=== PATIENT | female | born 1965 | race Asian ===

== ENCOUNTER 2020-05-06 08:17 | Outpatient (REF) | payer OTHER, SELFPAY ==
[2020-05-06 09:48] LABS: COVID-19 Test Positive (Negative); IDNOW Serial# 55D5AD1C
== END 2020-05-06 08:18 | disposition home or self-care (01) ==
LOC: HO.EMPCOV 08:17
PROVIDERS: Visit Provider Internal Medicine
DX: Z20.828 Contact with and (suspected) exposure to other viral communicable diseases (principal)
CPT/HCPCS: 87635; C9803

== ENCOUNTER 2020-05-24 15:40 | Outpatient (REF) | payer OTHER, SELFPAY ==
--- NOTE | 2020-05-24 15:46 | MM_ITS ---
EXAMINATION: MM SCREENING DIGITAL BREAST TOMOSYNTHESIS, BILATERAL CLINICAL INFORMATION: Screening. Asymptomatic. The lifetime risk of breast cancer based on the Tyrer-Cuzick Model is 18%. COMPARISON: Mammography: December 30, 2018 and studies dating back to May 27, 2011 TECHNIQUE: Digital breast tomosynthesis is performed in both the craniocaudal and mediolateral oblique views along with computer-aided detection (CAD). Synthesized 2D images are generated from the tomosynthesis. FINDINGS: There are scattered areas of fibroglandular density (ACR BI-RADS breast composition Category b). There are no new significant masses, abnormal calcifications, or other abnormalities. There is stable architectural distortion about the superior aspect of the left breast. MM/MM tomosynthesis screening BI IMPRESSION: There are no significant changes from prior study. ASSESSMENT: BI-RADS 2: Benign RECOMMENDATION: Routine annual mammography screening. This patient's information was entered into a reminder system with a target due date for their next mammogram.
== END 2020-05-24 15:41 | disposition home or self-care (01) ==
LOC: HO.MAMMO 15:40
PROVIDERS: PCP Internal Medicine; Visit Provider Internal Medicine
DX: Z12.31 Encounter for screening mammogram for malignant neoplasm of breast (principal)
CPT/HCPCS: 77063; 77067

== ENCOUNTER 2021-03-05 07:56 | Outpatient (REF) | payer OTHER, SELFPAY ==
[2021-03-05 09:05] LABS: MANUAL DIFF FLAG NO
[2021-03-05 09:10] LABS: Basophils Percent Auto 0.5 % (0-2); Eosinophils Absolute Auto 0.2 X10*3/uL (0.0-0.4); Hematocrit 43.4 % (37-47); Hemoglobin 14.7 g/dl (12.0-16.0); Imm Gran Pct Auto 1.2 % (0.0-0.4); Lymphocytes Absolute Auto 2.8 X10*3/uL (1.2-4.9); Lymphocytes Percent Auto 34.8 % (20-40); Mean Corpuscular HGB Conc 33.9 g/dl (31.0-35.0); Mean Corpuscular Hemoglobin 32.2 pg (27.0-33.0); Mean Platelet Volume 9.3 fL (9.4-12.3); Monocytes Absolute Auto 0.6 X10*3/uL (0.1-1.2); Monocytes Percent Auto 7.8 % (2-11); Neutrophils Absolute Auto 4.3 X10*3/uL (2.0-8.3); Neutrophils Percent Auto 53.7 % (45-73); Platelet Count 257 X10*3/uL (160-400); Red Blood Count 4.57 X10*6/uL (4.20-5.50); Red Cell Distribution Width 12.8 % (11.0-16.0)
[2021-03-05 09:58] LABS: Erythrocyte Sedimentation Rate 12 MM/HR (0-20)
[2021-03-05 10:09] LABS: Appearance Urine CLEAR; Color Urine YELLOW; Glucose Urine UA NEG (NEG); Leukocyte Esterase Urine NEG (NEG); Nitrite Urine NEG (NEG); Specific Gravity - Urine 1.025 (1.005-1.025); Urine Blood NEG (NEG); Urine Ketones NEG (NEG); Urine Protein NEG (NEG-TRACE)
[2021-03-05 10:12] LABS: Alanine Aminotransferase 39 U/L (0-31); Albumin Level 4.7 g/dL (3.5-5.0); Alkaline Phosphatase 75 U/L (39-117); Anion Gap 13 (12-20); Aspartate Amino Transferase 31 U/L (5-31); Bilirubin Total 0.9 mg/dL (0.0-1.0); Blood Urea Nitrogen 15 mg/dL (9-16); Calcium 9.4 mg/dL (8.4-10.2); Carbon Dioxide 29 mmol/L (22-29); Chloride 105 mmol/L (96-108); Cholesterol 219 mg/dL; Estimated Glomerular Filt Rate > 60; Glucose Fasting 102 mg/dL (60-99); HDL Cholesterol 44 mg/dL; LDL Cholesterol Calculated 143 mg/dl; Potassium 4.6 mmol/L (3.3-5.1); Sodium 142 mmol/L (135-145); Total Protein 7.6 g/dL (6.5-8.0); Triglycerides 161 mg/dL
[2021-03-05 10:19] LABS: Vitamin D 25-OH Total 20.7 ng/mL (>30)
== END 2021-03-05 07:57 | disposition home or self-care (01) ==
LOC: HO.LAB 07:56
PROVIDERS: PCP Internal Medicine; Visit Provider Internal Medicine
DX: E78.00 Pure hypercholesterolemia, unspecified (principal); M25.50 Pain in unspecified joint; I10 Essential (primary) hypertension; E55.9 Vitamin D deficiency, unspecified
CPT/HCPCS: 36415; 80053; 80061; 81003; 82306; 84443; 85025; 85652; 86140

== ENCOUNTER 2022-01-05 10:28 | Outpatient (REF) | payer OTHER, SELFPAY ==
--- NOTE | 2022-01-05 10:34 | EMG_ITS ---
Right tibial and peroneal motor studies were performed. Right and left lateral femoral cutaneous sensory studies were performed. Right sural and superficial peroneal studies were performed. Tibial H-reflex was obtained. Needle examination was performed. IMPRESSION: 1. Bilateral, right more than left, lateral femoral cutaneous neuropathy. 2. The EMG is suggestive of right upper lumbar radiculopathy. MD MARIXA Griffin/AXEL / [id number]
== END 2022-01-05 10:29 | disposition home or self-care (01) ==
LOC: HO.NEURO 10:28
PROVIDERS: PCP Internal Medicine; Visit Provider Internal Medicine
DX: R20.2 Paresthesia of skin (principal)
CPT/HCPCS: 95886; 95910

== ENCOUNTER 2022-01-19 16:15 | Outpatient (REF) | payer OTHER, SELFPAY ==
--- NOTE | ~2022-01-19 | XR_ITS ---
EXAMINATION: XR LUMBAR SPINE XR HIP, BILATERAL XR KNEE, RIGHT CLINICAL INFORMATION: Pain right knee, lumbar spine and bilateral hips. COMPARISON: Right knee 03/02/2016. TECHNIQUE: Lumbar spine 4 views. AP pelvis and bilateral hips 5 views. Right knee 4 views. FINDINGS: LUMBAR SPINE: There is normal lumbar lordosis. The vertebral heights, alignment and disc heights are normal. No visible acute fracture, dislocation or subluxation seen. The SI joints are symmetric and normal. No lytic or sclerotic process seen. AP PELVIS AND BILATERAL HIPS: There is normal symmetry of bilateral SI joints and hip joints. No fracture or dislocation seen. AP and frog-leg views of both hips reveal no bony erosive changes, fracture or dislocation. No periarticular spurring. The soft tissues are normal. RIGHT KNEE: There is no visible acute fracture, dislocation or subluxation seen. No abnormal joint effusion. XR/XR knee RT 4V IMPRESSION: Unremarkable lumbar spine. Unremarkable AP pelvis and bilateral hips. Unremarkable right knee exam.
--- NOTE | ~2022-01-19 | XR_ITS ---
EXAMINATION: XR LUMBAR SPINE XR HIP, BILATERAL XR KNEE, RIGHT CLINICAL INFORMATION: Pain right knee, lumbar spine and bilateral hips. COMPARISON: Right knee 03/02/2016. TECHNIQUE: Lumbar spine 4 views. AP pelvis and bilateral hips 5 views. Right knee 4 views. FINDINGS: LUMBAR SPINE: There is normal lumbar lordosis. The vertebral heights, alignment and disc heights are normal. No visible acute fracture, dislocation or subluxation seen. The SI joints are symmetric and normal. No lytic or sclerotic process seen. AP PELVIS AND BILATERAL HIPS: There is normal symmetry of bilateral SI joints and hip joints. No fracture or dislocation seen. AP and frog-leg views of both hips reveal no bony erosive changes, fracture or dislocation. No periarticular spurring. The soft tissues are normal. RIGHT KNEE: There is no visible acute fracture, dislocation or subluxation seen. No abnormal joint effusion. XR/XR lumbar spine 2-3V IMPRESSION: Unremarkable lumbar spine. Unremarkable AP pelvis and bilateral hips. Unremarkable right knee exam.
--- NOTE | ~2022-01-19 | XR_ITS ---
EXAMINATION: XR LUMBAR SPINE XR HIP, BILATERAL XR KNEE, RIGHT CLINICAL INFORMATION: Pain right knee, lumbar spine and bilateral hips. COMPARISON: Right knee 03/02/2016. TECHNIQUE: Lumbar spine 4 views. AP pelvis and bilateral hips 5 views. Right knee 4 views. FINDINGS: LUMBAR SPINE: There is normal lumbar lordosis. The vertebral heights, alignment and disc heights are normal. No visible acute fracture, dislocation or subluxation seen. The SI joints are symmetric and normal. No lytic or sclerotic process seen. AP PELVIS AND BILATERAL HIPS: There is normal symmetry of bilateral SI joints and hip joints. No fracture or dislocation seen. AP and frog-leg views of both hips reveal no bony erosive changes, fracture or dislocation. No periarticular spurring. The soft tissues are normal. RIGHT KNEE: There is no visible acute fracture, dislocation or subluxation seen. No abnormal joint effusion. XR/XR hips JOSÉ MIGUEL min 3V IMPRESSION: Unremarkable lumbar spine. Unremarkable AP pelvis and bilateral hips. Unremarkable right knee exam.
== END 2022-01-19 16:16 | disposition home or self-care (01) ==
LOC: HO.XRAY 16:15
PROVIDERS: PCP Internal Medicine; Visit Provider Internal Medicine
DX: R20.2 Paresthesia of skin (principal); M54.50 Low back pain, unspecified; M25.561 Pain in right knee; G57.10 Meralgia paresthetica, unspecified lower limb
CPT/HCPCS: 72100; 73522; 73564

== ENCOUNTER 2022-03-09 07:38 | Outpatient (REF) | payer OTHER, SELFPAY ==
[2022-03-09 10:53] LABS: MANUAL DIFF FLAG NO
[2022-03-09 11:07] LABS: Basophils Absolute Auto 0.1 X10*3/uL (0.0-0.2); Basophils Percent Auto 0.7 % (0-2); Eosinophils Absolute Auto 0.1 X10*3/uL (0.0-0.4); Eosinophils Percent Auto 1.6 % (0-4); Hemoglobin 14.6 g/dl (12.0-16.0); Imm Gran Abs Auto 0.09 X10*3/uL (0.00-0.03); Lymphocytes Absolute Auto 2.9 X10*3/uL (1.2-4.9); Lymphocytes Percent Auto 33.1 % (20-40); Mean Corpuscular HGB Conc 33.2 g/dl (31.0-35.0); Mean Corpuscular Hemoglobin 31.1 pg (27.0-33.0); Mean Corpuscular Volume 93.6 fL (80.0-98.0); Mean Platelet Volume 9.4 fL (9.4-12.3); Monocytes Absolute Auto 0.6 X10*3/uL (0.1-1.2); Monocytes Percent Auto 6.8 % (2-11); Neutrophils Percent Auto 56.8 % (45-73); Platelet Count 281 X10*3/uL (160-400); Red Cell Distribution Width 12.5 % (11.0-16.0); White Blood Count 8.8 X10*3/uL (4.8-10.8)
[2022-03-09 11:15] LABS: Appearance Urine Turbid; Color Urine Yellow; Glucose Urine UA Negative (Negative); Leukocyte Esterase Urine Small (1+) (Negative); Nitrite Urine Negative (Negative); PH 5.5 (5.0-9.0); Specific Gravity - Urine 1.025 (1.005-1.025); UMIC TRIGGER UACC YES; Urine Blood Negative (Negative); Urine Ketones Negative (Negative); Urine Protein Negative (Neg-Trace)
[2022-03-09 11:20] LABS: Alanine Aminotransferase 28 U/L (0-31); Albumin Level 4.7 g/dL (3.5-5.0); Alkaline Phosphatase 89 U/L (39-117); Anion Gap 17 (12-20); Aspartate Amino Transferase 22 U/L (5-31); Bilirubin Total 0.7 mg/dL (0.0-1.0); Blood Urea Nitrogen 20 mg/dL (9-16); Calcium 9.7 mg/dL (8.4-10.2); Carbon Dioxide 26 mmol/L (22-29); Chloride 103 mmol/L (96-108); Cholesterol 241 mg/dL; Estimated Glomerular Filt Rate > 60; Glucose Fasting 96 mg/dL (60-99); HDL Cholesterol 41 mg/dL; LDL Cholesterol Calculated 166 mg/dl; Magnesium 2.2 mg/dL (1.6-2.6); Potassium 4.9 mmol/L (3.3-5.1); Sodium 141 mmol/L (135-145); Triglycerides 170 mg/dL
[2022-03-09 11:33] LABS: Bacteria Urine None Seen (None Seen); Hyaline Casts Urine 0-2 /LPF (0-2); RBC Urine 0-2 /HPF (0-2); UACC Culture Trigger YES; WBC Urine 0-5 /HPF (0-5)
[2022-03-09 11:43] LABS: TSH reflex Free T4 0.94 uIU/mL (0.32-4.0); Vitamin D 25-OH Total 23.9 ng/mL (>30)
[2022-03-09 11:55] LABS: Folate 14.3 ng/mL (> or = 4.0); Vitamin B12 324 pg/mL (200-900)
== END 2022-03-09 07:39 | disposition home or self-care (01) ==
LOC: HO.10HDL 07:38
PROVIDERS: Visit Provider Internal Medicine
DX: R20.2 Paresthesia of skin (principal); I10 Essential (primary) hypertension; E55.9 Vitamin D deficiency, unspecified; E78.00 Pure hypercholesterolemia, unspecified
CPT/HCPCS: 36415; 80053; 80061; 81001; 82306; 82607; 82746; 83735; 84443; 85025; 87086

== ENCOUNTER 2022-07-27 11:26 | Outpatient (REF) | payer OTHER, SELFPAY ==
--- NOTE | ~2022-07-27 | XR_ITS ---
EXAMINATION: KNEE X-RAY CLINICAL INFORMATION: Knee pain COMPARISON: Right knee x-ray January 2022 and left knee x-ray June 2019 TECHNIQUE: Standing AP view of both knees and lateral and sunrise view of the right knee FINDINGS: Right knee: Bone alignment is normal. No fracture or dislocation. Normal joint spaces. No significant joint effusion. Normal AP standing view of the left knee. XR/XR knee standing BI IMPRESSION: Unremarkable exam.
--- NOTE | ~2022-07-27 | XR_ITS ---
EXAMINATION: KNEE X-RAY CLINICAL INFORMATION: Knee pain COMPARISON: Right knee x-ray January 2022 and left knee x-ray June 2019 TECHNIQUE: Standing AP view of both knees and lateral and sunrise view of the right knee FINDINGS: Right knee: Bone alignment is normal. No fracture or dislocation. Normal joint spaces. No significant joint effusion. Normal AP standing view of the left knee. XR/XR knee RT 2V IMPRESSION: Unremarkable exam.
== END 2022-07-27 11:27 | disposition home or self-care (01) ==
LOC: HO.HOSX 11:26
PROVIDERS: Visit Provider Physician Assistant
DX: M25.561 Pain in right knee (principal); M25.562 Pain in left knee; M54.16 Radiculopathy, lumbar region; M54.50 Low back pain, unspecified
CPT/HCPCS: 73560; 73565

== ENCOUNTER 2023-02-16 14:58 | Outpatient (AMB) | payer OTHER, SELFPAY ==
--- NOTE | 2023-02-16 15:00 | A.OFFPC_ITS ---
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 Aircraft Required: No Accompanied by: Self / Same As Patient Allergies Penicillins Allergy (Mild, Verified 02/16/23 15:35) UNKNOWN penicillin V Allergy (Unknown, Verified 02/16/23 15:35) rash Medication List - Last Reconciled 02/16/23 by Grayson Lundberg MD diclofenac sodium 1% 4 grams topical QID lisinopril 10 mg PO DAILY 90 days metoprolol tartrate 50 mg PO BID 90 days Tobacco use date assessed: 02/16/23 Dental Screening Dental Screen Date: 02/16/23 Did you have a dental visit in the last 12 months?: Yes Did you have a dental problem in the last 6 months where you did not have access to dental care?: No Was dental information given to patient?: Patient has dentist HPI pe HPI Details Patient comes in today for her annual physical examination States that she has been experiencing recurrent/frequent pain and discomfort in her right knee for the past few months Notes that her knee symptoms tend to bother her more with prolonged walking/standing, when navigating stairs and with increased activity Was seen by orthopedics for the same problem earlier this year and was sent for knee x-rays, which came out negative Lumbar spine x-rays also came back normal She was trialed on Medrol dose yeinfer as well as some topical NSAIDs, which provided only temporary symptoms relief Also relates (+) recurrent heartburns lately, especially when she lies down in bed at night States that she would then take some OTC Pepcid, which would promptly relieve her symptoms Notes also some chest burning / discomfort at times and is concerned if her symptoms may have any cardiac etiology States that she feels okay otherwise She denies any headaches or dizziness Denies any increased SOB No nausea/vomiting, no abdominal pain No change in bowel habits noted Denies any acute urinary symptoms Needs both of her BP med Rx refilled for a year's supply Patient has also not had a screening colonoscopy done in the past Requested to have Cologuard testing ordered instead back in 2019 but it appears that she was never able to get this done Last had a mammogram done in 2019 and has not had one done since Has had a complete hysterectomy done in the past and does not need to see gynecology for routine pap smear and qualitative executive researcher exam any longer [facility] Medical History (Updated 02/16/23 @ 17:29 by Grayson Lundberg MD) Arthralgia Benign essential hypertension GERD without esophagitis Hypertriglyceridemia Overweight (BMI 25.0-29.9) Surgical History Status post total abdominal hysterectomy and bilateral salpingo-oophorectomy (SONJA-BSO) (~2012) Family History Father No problems noted. Mother No problems noted. 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 1. Little interest or pleasure in doing things: not at all 2. Feeling down, depressed, or hopeless: not at all 3. Trouble falling or staying asleep, or sleeping too much: not at all 4. Feeling tired or having little energy: not at all 5. Poor appetite or overeating: not at all 6. Feeling bad about yourself - or that you are a failure or have let yourself or your family down: not at all 7. Trouble concentrating on things, such as reading the newspaper or watching television: not at all 8. Moving or speaking so slowly that other people could have noticed. Or the opposite - being so fidgety or restless that you have been moving around a lot more than usual: not at all 9. Thoughts that you would be better off or of hurting yourself in some way: not at all Total score: 0 Depression Screening Interpretation: Negative [id number] - PHQ-9 Billing: Yes Source: Developed by Drs. Segundo Blackmon, Tati Comer, Isidoro Cabrera and colleagues, with an educational sharron from [employer]. Thrive Questionnaire Date Thrive assessed: 02/16/23 I am a: Patient What is your living situation today?: I have a steady place to live Within the past 12 months, did the food you bought not last and you didn't have the money to get more?: Never true Within the past 12 months, did you worry whether your food would run out before you got money to buy more?: Never true Do you have trouble paying for medicines?: No Do you have trouble getting transportation to medical appointments?: No Do you have trouble paying your heating and electricity bill?: No Do you have trouble taking care of your child, family member or friend?: No Do you have trouble with day-to-day activities such as bathing, preparing meals, shopping, managing finances, etc.?: No Are you currently unemployed and looking for a job?: No Are you interested in more education?: No Please select the resources that you would like help with: None Currently or been in a relationship where the following occur: no concerns reported AUDIT C Alcohol Use Questionnaire (AUDIT-C) 1. How often do you have a drink containing alcohol?: Never 3. How often do you have six or more drinks on one occasion?: Never Total Score: 0 Score Reviewed/Action Taken: Yes ARMIN-7 AMB Questionnaire ARMIN-7 Date ARMIN - 7 assessed: 02/16/23 Feeling nervous, anxious, or on edge: 0 = Not at all Not being able to stop or control worryin = Not at all Worrying too much about different things: 0 = Not at all Trouble relaxin = Not at all Being so restless that it is hard to sit still: 0 = Not at all Becoming easily annoyed or irritable: 0 = Not at all Feeling afraid as if something awful might happen: 0 = Not at all Total ARMIN-7 score (0-4 normal; 5-9 mild; 10-14 moderate; 15-21 severe): 0 Source: Developed by Drs. Segundo Blackmon, Tati Comer, Isidoro Cabrera and colleagues, with an educational sharron from [employer]. Review of Systems Const Denies chills, Denies fatigue, Denies fever(s), Denies headache(s) and Denies malaise Eyes Denies blurry vision, Denies change in vision, Denies irritation and Denies itchy eyes ENT Denies dysphagia, Denies dizziness, Denies otalgia, Denies headache(s), Denies nasal congestion, Denies neck pain, Denies odynophagia, Denies sinus pain and Denies sore throat Card Reports chest pain (at times; more of discomfort that sometimes occur with her heartburns), Denies rapid heart rate, Denies irregular heart rhythm, Denies palpitations and Denies dyspnea Resp Denies chest congestion, Denies cough, Denies dyspnea and Denies wheezing GI Denies abdominal pain, Denies bloating, Denies constipation, Denies dysphagia, Reports heartburn (on and off, mostly at night), Denies diarrhea, Denies nausea, Denies odynophagia and Denies vomiting Denies hematuria, Denies urinary frequency, Denies dysuria, Denies urinary incontinence and Denies urinary urgency Musc Denies back pain, Reports arthralgias (on and off in the right knee), Denies joint swelling, Denies muscle weakness and Denies neck pain Skin/Breast Denies breast pain, Denies breast mass, Denies change in pigmentation, Denies le sions, Denies rash and Denies unusual bruising Neuro Denies dizziness, Denies headache(s) and Denies paresthesias Psych Denies anxiety and Denies depression Endo Denies fatigue and Denies palpitations Myke/Lymph Denies easy bruising Aller/Immun Denies itchy eyes and Denies wheezing Physical exam (Primary Care) Vital Signs: Last Vital Signs Pulse 74 02/16/23 15:01 BP 132/70 02/16/23 15:01 Pulse Ox 97 02/16/23 15:01 Oxygen Delivery Method Room Air 02/16/23 15:01 Tobacco/Smoking Status: Tobacco use Status Tobacco use date assessed 02/16/23 02/16/23 15:07 Patient Tobacco Use Status Never used Tobacco 02/16/23 15:07 e-Cigarette/Vaping Use Never Used 02/16/23 15:07 PHQ-9: PHQ-9 Score PHQ-9: Total score 0 02/16/23 15:56 Depression Screening Interpretation: Negative Thrive Assessment: Date of Thrive Assessment Date Thrive assessed 02/16/23 02/16/23 15:07 Currently or been in a relationship where the following occur: no concerns reported Const General: no acute distress, alert and awake Orientation/consciousness: patient oriented x3 HENMT Head: Yes normocephalic and Yes atraumatic Ears: external ears normal, TM's normal bilaterally and EAC's normal General nose exam: No nasal discharge present Face and sinus: Yes normal facial exam and Yes sinuses nontender Teeth and gingiva: dentition normal Throat: Yes posterior oropharynx normal and Yes tonsils normal (no TP congestion) Eyes Eyelids: Yes eyelids normal Conjunctivae: conjunctivae normal Pupils: Equal, round and reactive pupils present EOM: EOMs intact bilaterally Neck Neck: Yes no lymphadenopathy and Yes supple Thyroid: Thyroid normal Resp Auscultation: clear to auscultation bilaterally, no rales and no wheezes Cardio Rate: regular rate Rhythm: regular rhythm Heart sounds: no murmurs GI Palpation (GI): Soft to palpation, nontender and No hepatosplenomegaly present Auscultation: normal bowel sounds General: Yes no CVA tenderness Back/Spine/Pelvis Back: no CVA tenderness Thoracic/Lumbar Spine: thoracic and lumbar spine normal to inspection Skin Lesions: no lesions Rashes: no rashes Neuro General: patient oriented x3, moves all extremities, no focal motor deficits and CN's II-XI intact bilaterally Cranial nerves: Yes Equal, round and reactive pupils present Cognition (Neuro): normal cognition Gait exam (Neuro): Normal gait present Extrem General: Yes no clubbing, cyanosis or edema Right lower extremity: knee Details: normal ROM; no tenderness (no tenderness noted on exam currently) and no swelling Assessment and Plan Assessment & Plan (1) Annual physical exam: Code(s): Z00.00 - Encounter for general adult medical examination without abnormal findings Plan: Check labs She is due for repeat annual mammogram (ordered) Has never had a screening colonoscopy done; opted to have Cologuard ordered back in 2020 but it appears that she was never able to get this completed Have advised that we can order Cologuard again OR if she feels ready, we can refer her for an actual screening colonoscopy - patient would like some time to consider her options and call us back once she makes her decision She does NOT need to get annual pap smear and qualitative executive researcher exam - is S/P SONJA-BSO years ago (2) Benign essential hypertension: Code(s): I10 - Essential (primary) hypertension Plan: Reinforced low sodium diet - goal is systolic BP of at least 120 to 130 mm or less Continue Lisinopril 10 mg QD and Metoprolol 50 mg BID - Rx refilled (3) Mixed hyperlipidemia: Code(s): E78.2 - Mixed hyperlipidemia Plan: Cautioned that her LDL cholesterol level was elevated at > 166 mg/dl when last checked a year ago in February 2022 Reinforced low cholesterol diet Will recheck her fasting lipids SHAKIRA for follow up (4) Chest discomfort: Code(s): R07.89 - Other chest pain Plan: Due to her recurrent chest symptoms and comorbidities, will refer her for cardiac stress testing for further evaluation (5) Paresthesia of both lower extremities: Code(s): R20.2 - Paresthesia of skin Plan: EMG and NCV done back on 02/09/2011 revealed findings of right lateral femoral cutaneous neuropathy/meralgia paresthetica X-rays of the lumbar spine and both hips done last year came out normal Repeat EMG and NCV done last year in December 2021 revealed the same - (+) bilateral, right more than left, lateral femoral cutaneous neuropathy EMG was suggestive of a right upper lumbar radiculopathy (6) Vitamin D deficiency: Code(s): E55.9 - Vitamin D deficiency, unspecified Plan: Continue OTC Vitamin D3 2000 units QD Will recheck her Vitamin D level for follow up (7) Right knee pain: Code(s): M25.561 - Pain in right knee Qualifiers: Chronicity: unspecified Qualified Code(s): M25.561 - Pain in right knee Plan: X-rays of the right knee done earlier this year came out normal She was previously seen by orthopedics and prescribed some Medrol dose yenifer and topical NSAIDs for short-term relief Due to her ongoing knee symptoms and recurrent knee instability, will send her for an MRI of the right knee for further evaluation (8) Overweight (BMI 25.0-29.9): Code(s): E66.3 - Overweight Plan: Reinforced diet/exercise as tolerated/lose weight (9) Breast cancer screening by mammogram: Code(s): Z12.31 - Encounter for screening mammogram for malignant neoplasm of breast Plan: Last done over 2 years ago in late 2019; will send for repeat annual mammogram Plan To return in 1 year for her next annual physical examination; may need to follow up in 6 months if labs or test results are abnormal Orders: Orders MR knee RT wo con Today M23.51 - Chronic instability of knee, right knee, M25.561 - Pain in right knee Comprehensive [place]. Panel Fast Today E78.00 - Pure hypercholesterolemia, unspecified, Z00.00 - Encounter for general adult medical examination without abnormal findings Lipid Panel Today E78.00 - Pure hypercholesterolemia, unspecified, Z00.00 - Encounter for general adult medical examination without abnormal findings TSH reflex Free T4 Today E78.00 - Pure hypercholesterolemia, unspecified, Z00.00 - Encounter for general adult medical examination without abnormal findings Complete Blood Count Auto Diff Today I10 - Essential (primary) hypertension, Z00.00 - Encounter for general adult medical examination without abnormal findings UA CC w/rflx Micro + Cult Today R30.0 - Dysuria, Z00.00 - Encounter for general adult medical examination without abnormal findings C Peptide Today M23.51 - Chronic instability of knee, right knee, M25.561 - Pain in right knee, Z00.00 - Encounter for general adult medical examination without abnormal findings Vitamin D 25-OH Total Today E55.9 - Vitamin D deficiency, unspecified, Z00.00 - Encounter for general adult medical examination without abnormal findings Erythrocyte Sedimentation Rate Today M23.51 - Chronic instability of knee, right knee, M25.561 - Pain in right knee, Z00.00 - Encounter for general adult medical examination without abnormal findings CA cardiopulmonary stress test Today E78.2 - Mixed hyperlipidemia, I10 - Essential (primary) hypertension, R07.89 - Other chest pain, R07.9 - Chest pain, unspecified MM tomosynthesis screening BI Today Z12.31 - Encounter for screening mammogram for malignant neoplasm of breast Medications: Refilled metoprolol tartrate 50 mg PO BID 90 days 180 tabs 3RF I10 - Essential (primary) hypertension lisinopril 10 mg PO DAILY 90 days 90 tabs 3RF I10 - Essential (primary) hypertension Coding Level of Care Code Est Pt Prev Care 40-64y([id number]) Diagnoses Annual physical exam Z00.00 Benign essential hypertension I10 Mixed hyperlipidemia E78.2 Chest discomfort R07.89 Paresthesia of both lower extremities R20.2 Vitamin D deficiency E55.9 Right knee pain M25.561 Chronicity: unspecified Overweight (BMI 25.0-29.9) E66.3 Breast cancer screening by mammogram Z12.31
[2023-02-16 15:01] VITALS: BP 132/70; PULSE 74; O2SAT 97
== END 2023-02-16 15:40 | disposition home or self-care (01) ==
PROVIDERS: PCP Internal Medicine; Visit Provider Internal Medicine
DX: Z00.00 Encounter for general adult medical examination without abnormal findings (principal); I10 Essential (primary) hypertension; E55.9 Vitamin D deficiency, unspecified; E78.2 Mixed hyperlipidemia; R07.89 Other chest pain; R20.2 Paresthesia of skin; M25.561 Pain in right knee; E66.3 Overweight
CPT/HCPCS: 99396

== ENCOUNTER 2023-02-23 08:04 | Outpatient (REF) | payer OTHER, SELFPAY ==
[2023-02-23 10:25] LABS: MANUAL DIFF FLAG NO
[2023-02-23 10:31] LABS: Basophils Absolute Auto 0.1 X10*3/uL (0.0-0.2); Basophils Percent Auto 0.5 % (0-2); Eosinophils Absolute Auto 0.2 X10*3/uL (0.0-0.4); Eosinophils Percent Auto 1.7 % (0-4); Hematocrit 42.4 % (37.0-47.0); Hemoglobin 14.4 g/dl (12.0-16.0); Imm Gran Pct Auto 0.9 % (0.0-0.4); Lymphocytes Absolute Auto 2.6 X10*3/uL (1.2-4.9); Lymphocytes Percent Auto 24.2 % (20-40); Mean Corpuscular Hemoglobin 31.6 pg (27.0-33.0); Mean Platelet Volume 9.4 fL (9.4-12.3); Monocytes Absolute Auto 0.8 X10*3/uL (0.1-1.2); Monocytes Percent Auto 7.2 % (2-11); Neutrophils Absolute Auto 7.1 x10*3/uL (2.0-8.3); Neutrophils Percent Auto 65.5 % (45-73); Platelet Count 256 X10*3/uL (160-400); Red Blood Count 4.56 X10*6/uL (4.20-5.50); Red Cell Distribution Width 12.6 % (11.0-16.0); White Blood Count 10.9 X10*3/uL (4.8-10.8)
[2023-02-23 10:42] LABS: Appearance Urine Turbid; Color Urine Yellow; Glucose Urine UA Negative (Negative); Leukocyte Esterase Urine Negative (Negative); Nitrite Urine Negative (Negative); PH 5.5 (5.0-9.0); Urine Blood Negative (Negative); Urine Ketones Negative (Negative); Urine Protein Negative (Neg-Trace)
[2023-02-23 10:54] LABS: Alanine Aminotransferase 30 U/L (0-31); Albumin Level 4.4 g/dL (3.5-5.0); Alkaline Phosphatase 78 U/L (39-117); Anion Gap 12 (12-20); Aspartate Amino Transferase 22 U/L (5-31); Bilirubin Total 0.5 mg/dL (0.0-1.0); Blood Urea Nitrogen 13 mg/dL (9-16); Calcium 9.4 mg/dL (8.4-10.2); Carbon Dioxide 27 mmol/L (22-29); Chloride 107 mmol/L (96-108); Cholesterol 221 mg/dL (<200); Estimated Glomerular Filt Rate > 60; Glucose Fasting 99 mg/dL (60-99); HDL Cholesterol 43 mg/dL (>40); LDL Cholesterol Calculated 138 mg/dL (<100); Sodium 142 mmol/L (135-145); Total Protein 7.7 g/dL (6.5-8.0); Triglycerides 200 mg/dL (<150)
[2023-02-23 11:09] LABS: TSH reflex Free T4 1.01 uIU/mL (0.32-4.0); Vitamin D 25-OH Total 34.6 ng/mL (>30)
[2023-02-23 11:20] LABS: Erythrocyte Sedimentation Rate 37 MM/HR (0-20)
== END 2023-02-23 08:05 | disposition home or self-care (01) ==
LOC: HO.10HDL 08:04
PROVIDERS: Visit Provider Internal Medicine
DX: Z00.00 Encounter for general adult medical examination without abnormal findings (principal); R30.0 Dysuria; M23.51 Chronic instability of knee, right knee; M25.561 Pain in right knee; E55.9 Vitamin D deficiency, unspecified; E78.00 Pure hypercholesterolemia, unspecified; I10 Essential (primary) hypertension
CPT/HCPCS: 36415; 80053; 80061; 81003; 82306; 84443; 84681; 85025; 85652

== ENCOUNTER → 2023-02-27 08:09 | Outpatient (REF) | payer OTHER, SELFPAY ==
--- NOTE | 2023-02-27 08:15 | CA_ITS ---
Acquisition Time: 2023-02-27 08:23:03 Total Exercise Time: 00:07:38 Test Indications: CHEST PAIN Medications: LISINOPRIL METOPROLOL Protocol: RADHA Max HR: 144 BPM 88% of Pred: 163 BPM Max BP: 230/110 mmHG Max Work Load: 9.5 METS Exercise stress test exercise 7 min 38 sec of Radha protocol achieving 88% MPHR, without anignal symptoms, without arrhtyhmias, with resting HTN 160/70, 154/92, 148/88, and max BP post exercise 230/110, T wave inversion leads 3, aVF, V3-V6 7 min 4 recovery. Blood pressure returned to baseline with rest. Test reviewed with Dr. William. Message sent to PCP for HTN. Referred By: Grayson Lundberg Overread By: LUCINA WILLIAM
== END ==
LOC: HO.CARD 08:09
PROVIDERS: PCP Internal Medicine; Visit Provider Internal Medicine
DX: R07.9 Chest pain, unspecified (principal)
CPT/HCPCS: 93017

== ENCOUNTER → 2023-02-27 08:15 | Outpatient (BNV) | payer OTHER, SELFPAY | PROVIDERS: PCP Internal Medicine; Visit Provider Internal Medicine | DX: R07.9 Chest pain, unspecified (principal) | CPT/HCPCS: 93016; 93018 ==

== ENCOUNTER 2023-03-06 14:36 | Outpatient (AMB) | payer OTHER, SELFPAY ==
[2023-03-06 15:43] VITALS: BP 142/82; PULSE 76; TEMP 36.5; O2SAT 98
--- NOTE | 2023-03-06 15:43 | AM.OFFWIN_ITS ---
Intake Vital Signs 03/06/23 15:43 Height 5 ft 2 in BMI Reason not done Patient refused/unable BP 142/82 H Blood Pressure Location Rt brachial Position Sitting Pulse 76 Pulse Source Pulse Oximeter Temp 97.7 F Temp Source Temporal Artery Scan Pulse Oximetry (%) 98 Intake Visit Reasons: EP rash neck Intake Note: pt is here for c/o rash on neck since sunday Patient Tobacco Use Status: Never used Tobacco Allergies Penicillins Allergy (Mild, Verified 03/06/23 16:06) UNKNOWN penicillin V Allergy (Unknown, Verified 03/06/23 16:06) rash Medication List - Last Reconciled 03/06/23 by José Luis Manzanares MD diclofenac sodium 1% 4 grams topical QID lisinopril 10 mg PO DAILY 90 days metoprolol tartrate 50 mg PO BID 90 days Do you need a note to return to daycare/school/sports/work: Yes HPI EP rash neck HPI Details 57-year-old female presents to the [facility] for a sick visit. Patient has a rash around the neck and front of the chest. She had been wearing a necklace and dancing in the night [facility] Medical History (Updated 03/06/23 @ 16:07 by José Luis Manzanares MD) Overweight (BMI 25.0-29.9) GERD without esophagitis Hypertriglyceridemia Arthralgia Benign essential hypertension Surgical History Status post total abdominal hysterectomy and bilateral salpingo-oophorectomy (SONJA-BSO) (~2012) Family History Father No problems noted. Mother No problems noted. 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 No vesicles or pustules. Assessment & Plan Assessment & Plan (1) Irritant dermatitis: Code(s): L24.9 - Irritant contact dermatitis, unspecified cause Plan: Triamcinolone cream prescribed. If symptoms not better to follow-up here. Coding Level of Care Code Est Pt Level 3 (00506) Diagnoses Irritant dermatitis L24.9
== END 2023-03-06 16:19 | disposition home or self-care (01) ==
PROVIDERS: PCP Internal Medicine; Visit Provider Internal Medicine
DX: L24.9 Irritant contact dermatitis, unspecified cause (principal)
CPT/HCPCS: 99213

== ENCOUNTER 2023-03-07 15:56 | Outpatient (REF) | payer OTHER, SELFPAY ==
--- NOTE | ~2023-03-07 | MR_ITS ---
EXAMINATION: MR KNEE WITHOUT CONTRAST, RIGHT CLINICAL INFORMATION: Right knee pain following an injury. COMPARISON: Right knee radiographs dated 07/27/2022. TECHNIQUE: MRI of the knee without contrast was performed using routine sequences on a high-field scanner. FINDINGS: MENISCI: Medial Meniscus: Complete radial tear of the posterior root measuring up to 1.3 cm in ML dimension with medial extrusion of the meniscal body and mild adjacent soft tissue edema. Lateral Meniscus: Heterogeneity of the anterior and posterior roots, consistent with irregular fraying. LIGAMENTS: Cruciate: Intact. Collateral: Intact. EXTENSOR MECHANISM: Intact. ARTICULAR CARTILAGE/BONE: Patellofemoral Compartment: Inferior medial trochlea articular cartilage signal heterogeneity and surface irregularity. Inferior lateral trochlea signal heterogeneity and partial-thickness loss with minimal subchondral cystic change. Tiny marginal osteophytes. Medial Compartment: Articular cartilage thinning and signal heterogeneity with marginal osteophytes. Posterior non-weightbearing medial femoral condyle full-thickness fissuring with underlying subchondral cystic change. At the medialmost aspect of the medial tibial plateau, there is minimal cortical flattening measuring up to 0.6 cm in ML dimension with minimal adjacent marrow edema, which could represent a subacute/chronic subchondral fracture. Lateral Compartment: Mild articular cartilage signal heterogeneity with tiny marginal osteophytes. JOINT FLUID AND BURSAE: Small joint effusion and small Spaulding's cyst with synovitis. MR/MR knee RT wo con IMPRESSION: 1. Complete radial tear of the medial meniscus posterior root measuring 1.3 cm in ML dimension with medial extrusion of the meniscal body. 2. Irregular fraying of the lateral meniscus near the anterior and posterior roots. 3. Mild tricompartmental osteoarthritis. Small joint effusion and small Spaulding's cyst with synovitis.
== END 2023-03-07 15:57 | disposition home or self-care (01) ==
LOC: HO.MRI 15:56
PROVIDERS: PCP Internal Medicine; Visit Provider Internal Medicine
DX: M25.561 Pain in right knee (principal); M23.51 Chronic instability of knee, right knee
CPT/HCPCS: 73721

== ENCOUNTER → 2023-03-21 15:30 | Outpatient (BNV) | payer OTHER, SELFPAY | PROVIDERS: PCP Internal Medicine; Visit Provider Radiology Diagnostic Radiology | DX: Z12.31 Encounter for screening mammogram for malignant neoplasm of breast (principal) | CPT/HCPCS: 77063; 77067 ==

== ENCOUNTER 2023-03-21 15:36 | Outpatient (REF) | payer OTHER, SELFPAY ==
--- NOTE | ~2023-03-21 | MM_ITS ---
EXAMINATION: MM SCREENING DIGITAL BREAST TOMOSYNTHESIS, BILATERAL CLINICAL INFORMATION: Screening. Asymptomatic. COMPARISON: Mammography: This study is compared with prior exams dating back to 2018. TECHNIQUE: Digital breast tomosynthesis is performed in both the craniocaudal and mediolateral oblique views along with computer-aided detection (CAD). Synthesized 2D images are generated from the tomosynthesis. FINDINGS: There are scattered areas of fibroglandular density (ACR BI-RADS breast composition Category b). There are no significant masses, abnormal calcifications, or other abnormalities. There is a coarsely calcified benign mass in the upper inner quadrant of the right breast employment program representative of an involuted fibroadenoma. There is a tissue marker in the superior aspect of the left breast from prior benign percutaneous biopsy. MM/MM tomosynthesis screening BI IMPRESSION: No mammographic evidence of malignancy. ASSESSMENT: BI-RADS BI-RADS 2 - Benign Findings RECOMMENDATION: Routine annual mammography screening. 1 year F/U This examination should not preclude the clinical evaluation of a suspicious palpable abnormality. This patient's information was entered into a reminder system with a target due date for their next mammogram.
== END 2023-03-21 15:37 | disposition home or self-care (01) ==
LOC: HO.MAMMO 15:36
PROVIDERS: PCP Internal Medicine; Visit Provider Internal Medicine
DX: Z12.31 Encounter for screening mammogram for malignant neoplasm of breast (principal)
CPT/HCPCS: 77063; 77067

== ENCOUNTER 2023-04-19 15:03 | Outpatient (AMB) | payer OTHER, SELFPAY ==
--- NOTE | 2023-04-19 15:10 | A.OFFVIS_ITS ---
Intake Intake Visit Reasons: Newprob-Right knee pain Intake Note: Leona is a 57 year old female who presnets today for a new problem visit with complaints of right knee pain. PAtient reports that she has had ongoing knee pain for about 8 months now. While doing [employer] she slipped and fell on the right knee. She has had pain ad swelling of the right knee since this. She reports a second fall as she missed a step and buckled the knee. She had an MRI done. Allergies Penicillins Allergy (Mild, Verified 04/19/23 15:13) UNKNOWN penicillin V Allergy (Unknown, Verified 04/19/23 15:13) rash HPI Newprob-Right knee pain HPI Details Leona is a 57 year old woman, who works here at [employer], presenting for an MRI review of her right knee pain. She complains of pain in her right knee for some time, saying she first injured her knee during a [employer] class ~1 year ago. She reports falling onto her knee a few months later when in [place]. She complains of pain with daily activity, worse with prolonged walking, twisting, squatting, or using stairs. She says she is almost unable to weight bear when going up stairs. She also complains of swelling in her knee [facility] Medical History (Updated 04/19/23 @ 15:18 by Dequan Palmer) Overweight (BMI 25.0-29.9) GERD without esophagitis Hypertriglyceridemia Arthralgia Benign essential hypertension Surgical History Status post total abdominal hysterectomy and bilateral salpingo-oophorectomy (SONJA-BSO) (~2012) Family History Father No problems noted. Mother No problems noted. 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 Cognitive needs: No Hearing needs: No Vision needs: No Review of Systems Const All systems reviewed & are unremarkable except as noted in HPI and below Physical Exam Const General: no acute distress, alert and awake Orientation/consciousness: patient oriented x3 HEENT Head: Yes normocephalic and Yes atraumatic Eyes EOM: EOMs intact bilaterally Resp Effort & Inspection: normal respiratory effort and able to speak in complete sentences Cardio Jugular venous distension: no JVD Skin General skin exam: turgor normal Rashes: no rashes Neuro General: patient oriented x3 Extrem Other: Right Knee: vague medial compartment TTP with no effusion mildly + Steinmen's Psych Appearance: grossly normal Affect: normal affect Attitude: cooperative Results Reviewed Results Reviewed: I personally reviewed relevant MR images 1. Complete radial tear of the medial meniscus posterior root measuring 1.3 cm in ML dimension with medial extrusion of the meniscal body. 2. Irregular fraying of the lateral meniscus near the anterior and posterior roots. 3. Mild tricompartmental osteoarthritis. Small joint effusion and small Spaulding's cyst with synovitis. Assessment & Plan Assessment & Plan (1) Tear of medial meniscus of right knee: Code(s): S83.241A - Other tear of medial meniscus, current injury, right knee, initial encounter Plan: This is a 57 year old woman with a complex right knee medial meniscal root tear. SHe has minimal OA and is active. SHe is not able to return to activity and has not only mechanical symptoms but pain with twisting, squatting, using stairs and cycling. She feels limited in her ADLs by pain and finds this frustrating. She is unable to exercise without pain or her knee catching. I discussed her diagnosis and treatment options. I recommend a right knee with possible medial meniscus root repair vs partial mensicectomy. I discussed the risks, benefits, and alternatives including, but not limited to, the risk of pain, infection, stiffness, need for further surgery as well as potential medical complications such as blood clots, pulmonary embolism and cardiac complications. I discussed the recovery timeline and process as well as the importance of PT. Leona is a good candidate for this surgery, and she wishes to proceed with this decision. She will speak with Christa to schedule this procedure. Plan Scribed for Oliver Jackson MD by Dequan Palmer, biomedical equipment support specialist, on 04/19/23 at 3:20 PM, EST. Coding Level of Care Code Est Pt Level 4 (03671) Diagnoses Tear of medial meniscus of right knee S86.271A
== END 2023-04-19 15:34 | disposition home or self-care (01) ==
PROVIDERS: PCP Internal Medicine; Visit Provider Orthopaedic Surgery
DX: S83.231A Complex tear of medial meniscus, current injury, right knee, initial encounter (principal)
CPT/HCPCS: 99214

== ENCOUNTER → 2023-04-19 15:03 | Outpatient (BNVA) | payer OTHER, SELFPAY | PROVIDERS: PCP Internal Medicine; Visit Provider Orthopaedic Surgery ==

== ENCOUNTER 2023-05-16 06:49 | Day surgery (SDC) | payer OTHER, SELFPAY ==
[2023-05-09 11:43] VITALS: BP 148/87; PULSE 53; RESP 18; O2SAT 97; BMI 31.6
--- NOTE | 2023-05-09 12:38 | HO.ANESPROP2 ---
Documented by User: Constanza Roger NP 05/15/23 08:39 HPI - Anesthesia Eval Consult details Narrative: 57yo F for Right Knee Arthroscopy medial meniscus root repair Pending BP optimization per PCP. OK to proceed with f/u BP's WNL Stress test with htn and T wave inversions. No CP or SOB. No CP with stress test per patient No recent illness Asthma. No inhalers. Breathing exercises with wheezing PMFSH Active Problems Active Problems: All Active Problems (Updated 05/09/23 @ 12:20 by Trista Morales RN) Tear of medial meniscus of right knee (Acute) Irritant dermatitis (Acute) Breast cancer screening by mammogram (Acute) Chest discomfort (Acute) Chest pain (Acute) Recurrent right knee instability (Acute) Lower back pain (Acute) Lumbar radiculopathy (Acute) Lateral femoral cutaneous neuropathy (Acute) Vitamin D deficiency (Acute) Mixed hyperlipidemia (Acute) Right knee pain (Acute) Paresthesia of both lower extremities (Acute) Annual physical exam (Acute) Overweight (BMI 25.0-29.9) (Acute) GERD without esophagitis (Acute) Hypertriglyceridemia (Acute) Arthralgia (Acute) Benign essential hypertension (Acute) Past Medical History Medical History Neuropathy Habitual snoring Arthritis Asthma Overweight (BMI 25.0-29.9) GERD without esophagitis Hypertriglyceridemia Arthralgia Benign essential hypertension Family History Family History Father No problems noted. Mother No problems noted. Family history of problems with anesthesia: No Surgical History Surgical History Hx of breast biopsy Status post total abdominal hysterectomy and bilateral salpingo-oophorectomy (SONJA-BSO) (~2012) History of Problems with Anesthesia: Yes (PONV. Scop doesn't relieve. Will try aponvie.) Social History Social History Housing: House Are you a primary chiropractic care to a significant other at home: Yes Do you presently have visiting nurse or other home services: No Alcohol intake: never Patient Tobacco Use Status: Never used Tobacco e-Cigarette/Vaping Use: Never Used Second Hand Smoke Exposure: Yes Use of substances other than those prescribed or required for medical reasons: No Have you been hit, kicked, punched, or otherwise hurt by someone within the past year? 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 Cognitive needs: No Hearing needs: No Vision needs: No Meds Allergies Allergy/AdvReac Type Severity Reaction Status Date / Time Penicillins Allergy Mild UNKNOWN Verified 05/16/23 07:30 penicillin V Allergy Unknown rash Verified 05/16/23 07:30 acetaminophen [From Percocet] Allergy Vomiting Verified 05/16/23 07:30 oxycodone [From Percocet] Allergy Vomiting Verified 05/16/23 07:30 Home Medications Medication Instructions Recorded Confirmed Last Taken Type lisinopril 20 mg tablet 20 mg PO BEDTIME 05/09/23 05/09/23 Unknown History Exam Height,Weight and Vital Signs: Height 5 ft 2 in Weight 78.471 kg Last Vital Signs Pulse 53 05/09/23 11:43 Resp 18 05/09/23 11:43 BP 148/87 H 05/09/23 11:43 Pulse Ox 97 05/09/23 11:43 O2 Del Method Room Air 05/09/23 11:43 Pertinent Lab Results Pertinent Lab Results: Laboratory Tests 02/23/23 08:10 WBC 10.9 H Hgb 14.4 Hct 42.4 Plt Count 256 Sodium 142 Potassium 4.0 Chloride 107 Carbon Dioxide 27 BUN 13 Creatinine 0.76 Narrative Narrative: Exercise Stress 02/2023 Protocol: CHENTE Max HR: 144 BPM 88% of Pred: 163 BPM Max BP: 230/110 mmHG Max Work Load: 9.5 METS Exercise stress test exercise 7 min 38 sec of Chente protocol achieving 88% MPHR, without anignal symptoms, without arrhtyhmias, with resting HTN 160/70, 154/92, 148/88, and max BP post exercise 230/110, T wave inversion leads 3, aVF, V3-V6 7 min 4 recovery. Blood pressure returned to baseline with rest. Test reviewed with Dr. Cruz. Message sent to PCP for HTN. Airway Mallampati Class: III TM Dist: >3cm Neck ROM: Full Partial: Upper Heart: RRR Lungs: CTAB Assessment and Plan Assessment Anesthesia Assessment: Anesthesia Plan Discussed and PAT Visit Final Anesthetic Review Family History of Problems with Anesthesia: No History of Problems with Anesthesia: Yes (PONV. Scop doesn't relieve. Will try aponvie.) Documented by User: Rajesh Davidson MD 05/16/23 08:06 [facility] Past Medical History Medical History Neuropathy Habitual snoring Arthritis Asthma Overweight (BMI 25.0-29.9) GERD without esophagitis Hypertriglyceridemia Arthralgia Benign essential hypertension Family History Family History Father No problems noted. Mother No problems noted. Surgical History Surgical History Hx of breast biopsy Status post total abdominal hysterectomy and bilateral salpingo-oophorectomy (SONJA-BSO) (~2012) Social History Social History Housing: House Are you a primary chiropractic care to a significant other at home: Yes Do you presently have visiting nurse or other home services: No Alcohol intake: never Patient Tobacco Use Status: Never used Tobacco e-Cigarette/Vaping Use: Never Used Second Hand Smoke Exposure: Yes Use of substances other than those prescribed or required for medical reasons: No Have you been hit, kicked, punched, or otherwise hurt by someone within the past year? 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 Cognitive needs: No Hearing needs: No Vision needs: No Meds Allergies Allergy/AdvReac Type Severity Reaction Status Date / Time Penicillins Allergy Mild UNKNOWN Verified 05/16/23 07:30 penicillin V Allergy Unknown rash Verified 05/16/23 07:30 acetaminophen [From Percocet] Allergy Vomiting Verified 05/16/23 07:30 oxycodone [From Percocet] Allergy Vomiting Verified 05/16/23 07:30 Home Medications Medication Instructions Recorded Confirmed Last Taken Type lisinopril 20 mg tablet 20 mg PO BEDTIME 05/09/23 05/09/23 Unknown History Assessment and Plan Final Anesthetic Review ASA Class: III Final Preanesthetic Review: No Changes in Pt Med Stat, Meds/Allgs Chart Reviewed, Consent Obtained/Reviewed and Anes Risks/Benef Reviewed Patient Risk: Intermediate Procedure Risk: Intermediate Anesthetic Plan Anesthetic Plan: GA and Regional Block Disposition: Standard PACU
[2023-05-16] VITALS (12 sets, daily range): BP systolic 115–148; BP diastolic 68–96; PULSE 61–69; RESP 16–18; TEMP 36.2–37.1; O2SAT 93–100; BMI 31.9
[2023-05-16] MEDS: Lactated Ringers 1,000 ML 100 ML IVCONT (07:40)
[2023-05-16] MEDS: Aprepitant 32 MG/4.4 ML VIAL IVPUSH (07:44)
--- NOTE | 2023-05-16 10:41 | P.BOP_ITS ---
Brief Operative Note Date of Service: 05/16/23 Pre-op diagnosis: right knee MM tear Post-op diagnosis: same Procedure: Right medial meniscus root repair Implants: [employer] footprint anchor x1 Surgeon: Oliver Jackson MD Anesthesia: GETA Was an Community Services Officer used for this Procedure?: Yes Community Services Officer: Tmei Reece Estimated blood loss (mL): 10 Tourniquet time (min): 60 IV fluids (mL): 1,000 Pathology: none sent Condition: stable Disposition: PACU
[2023-05-16] MEDS: fentaNYL citrate/PF 100 MCG/2 ML VIAL 25 MCG IVPUSH ×2 (11:29→11:49)
[2023-05-16] MEDS: Acetaminophen 325 MG TABLET 650 MG PO (11:56)
[2023-05-16] MEDS: ondansetron HCL 4 MG/2 ML VIAL IVPUSH (12:14)
--- NOTE | 2023-05-18 15:31 | P.OP_ITS ---
Operative Note Operative Note Date of Service: 05/16/23 Narrative: Date of Service: 05/16/23 Pre-op diagnosis: right knee MM tear Post-op diagnosis: same Procedure: Right medial meniscus root repair Implants: [employer] footprint anchor x1 Surgeon: Oliver Jackson MD Anesthesia: GETA Was an Printed Circuit Board Layout Designer used for this Procedure?: Yes Printed Circuit Board Layout Designer: Temi Reece Estimated blood loss (mL): 10 Tourniquet time (min): 60 IV fluids (mL): 1,000 Pathology: none sent Condition: stable Disposition: PACU Procedure in detail: Patient was brought to the operating room placed supine on the arthroscopic table and prepped and draped in standard sterile fashion. A time-out was called to identify proper site proper procedure proper surgeon and IV antibiotics per weight were administered. I began by exsanguinating the limb and insufflating tourniquet to 300 mm Hg. Then made a standard anterolateral stab incision. knee was insufflated with water and 30 degree arthroscope was placed. There was grade 1 fibrillations of the patella but overall suprapatellar pouch was plane and the gutters were clean. I descended into the medial compartment where I made my medial portal just medial to the patellar tendon and under direct visualization. There were grade 2 changes of the medial femoral condyle. There was a complete root teat of the medial meniscus. I debrided some scarring from the posterior capsule and the PCL and the root was mobile. I used a currette to debride the cartilage below wth root tear. I then used a root repair guide to drill into the posterior medial root . Just prior to this I placed 2 Sutures through the medial root with a suture passer. I then passed a lasso through the drill hole and brought the two sutures through the tibia to the anterolateral surface just distal and lateral to the tibial tubercle. I then tightened the root repair and placed on Footprint anchor in the anterolateral tibia to secure the sutures. Once I was satisfied with this the ACL was examined and found to be intact and the lateral compartment also was without the need for intervention. I then removed all instrumentation and closed the portals with skin glue. The tourniquet was deflated. 25 mL of 2% Marcaine with epinephrine was injected into the joint and the surrounding soft tissues. Patient was then placed in sterile dressing extubated brought recovery room stable condition. There were no known complications. Root repair [facility] rehab protocol
== END 2023-05-16 13:55 | disposition home or self-care (01) ==
PROVIDERS: PCP Internal Medicine; Visit Provider Orthopaedic Surgery
PROC: (CPT 29870; principal; 2023-05-16 08:40)
DX: S83.241A Other tear of medial meniscus, current injury, right knee, initial encounter (principal); W01.0XXA Fall on same level from slipping, tripping and stumbling without subsequent striking against object, initial encounter; I10 Essential (primary) hypertension; K21.9 Gastro-esophageal reflux disease without esophagitis; E78.1 Pure hyperglyceridemia; Y93.A3 Activity, aerobic and step exercise; Y92.9 Unspecified place or not applicable; Y99.9 Unspecified external cause status
CPT/HCPCS: 29882; C1713; C9145; J0171; J0360; J0690; J1100; J1170; J2405; J2704; J2795; J3010

== ENCOUNTER → 2023-05-16 06:49 | Outpatient (BNV) | payer OTHER, SELFPAY | PROVIDERS: PCP Internal Medicine; Visit Provider Orthopaedic Surgery | DX: S83.231A Complex tear of medial meniscus, current injury, right knee, initial encounter (principal) | CPT/HCPCS: 29882 ==

== ENCOUNTER 2023-05-22 09:50 | Outpatient (AMB) | payer OTHER, SELFPAY ==
--- NOTE | 2023-05-22 09:52 | MHC.OFFVIS ---
Intake Intake Visit Reasons: PO-Rt Knee (Root Repair) 05/16 NE Intake Note: Leona is a 57 year old female who presents today for a post op appointment s/p right knee 05/16/23 NE. Patient reports still having pain but she is doing well. Allergies Penicillins Allergy (Mild, Verified 05/22/23 09:58) UNKNOWN penicillin V Allergy (Unknown, Verified 05/22/23 09:58) rash acetaminophen [From Percocet] Allergy (Verified 05/22/23 09:58) Vomiting oxycodone [From Percocet] Allergy (Verified 05/22/23 09:58) Vomiting HPI PO-Rt Knee (Root Repair) 05/16 NE HPI Details 57-year-old female who presents in the office today 6 days status post right medial meniscus root repair, which was performed on 05/16/[address] Jackson. While in the office today the patient reports she is still having pain, but overall is doing well. [facility] Medical History Neuropathy Habitual snoring Arthritis Asthma Overweight (BMI 25.0-29.9) GERD without esophagitis Hypertriglyceridemia Arthralgia Benign essential hypertension Surgical History (Updated 05/22/23 @ 10:05 by Vida Akbar) Hx of breast biopsy Status post total abdominal hysterectomy and bilateral salpingo-oophorectomy (SONJA-BSO) (~2012) Family History Father No problems noted. Mother No problems noted. 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 Steri-stripes are intact. No surrounding erythema or drainage. No signs of infection. Localized edema located just distally to the tibia incision site. NVI. Assessment & Plan Assessment & Plan (1) History of medial meniscus repair of right knee: Comment: Medial meniscus root repair 05/16/2023 NE Code(s): Z98.890 - Other specified postprocedural states Plan Ms. Richard is a 57-year-old female who presents in the office today 6 days status post right medial meniscus root repair, which was performed on 05/16/[address] Jackson. While in the office today the patient reports she is still having pain, but overall is doing well. Physical therapy protocols ere faced to the physical therapy office. Should they have any questions they will contact our office. The patient will remain in the brace at this time. She is able to perform 25% weight bearing at this time. Follow up will be in [address] Jackson. Patient Instructions: Scribed for Temi Reece PA-C by Vida Akbar medical videographer, on 05/22/2023 at 9:56 am, EST. Coding Level of Care Code Global (42902) Diagnoses History of medial meniscus repair of right knee Z98.890
== END 2023-05-22 10:26 | disposition home or self-care (01) ==
PROVIDERS: PCP Internal Medicine; Visit Provider Physician Assistant
DX: Z98.890 Other specified postprocedural states (principal)
CPT/HCPCS: 99024

== ENCOUNTER → 2023-05-22 09:50 | Outpatient (BNVA) | payer OTHER, SELFPAY | PROVIDERS: PCP Internal Medicine; Visit Provider Physician Assistant ==

== ENCOUNTER 2023-06-21 08:32 | Outpatient (AMB) | payer OTHER, SELFPAY ==
--- NOTE | 2023-06-21 08:33 | MHC.OFFVIS ---
Intake Vital Signs 06/21/23 08:34 Height 5 ft 2 in Weight 170 lb BMI 31.1 Intake Visit Reasons: PO-Rt Knee (Root Repair) 05/16/23 NE Intake Note: Leona is a 57 year old female who presents today for a 6 week post op appointment s/p right knee , Meniscal Root Repair 05/16/23 NE. She is 25% weight bearing status and remain in the brace. States she is dong well and is hoping to D/C use of brace. Allergies Penicillins Allergy (Mild, Verified 06/21/23 08:34) UNKNOWN penicillin V Allergy (Unknown, Verified 06/21/23 08:34) rash acetaminophen [From Percocet] Allergy (Verified 06/21/23 08:34) Vomiting oxycodone [From Percocet] Allergy (Verified 06/21/23 08:34) Vomiting HPI PO-Rt Knee (Root Repair) 05/16/23 NE HPI Details Leona is a 57 year old woman who presents ~6 weeks S/P right meniscus root repair. She says she is doing well, she continues to wear her brace and remains partial weight-bearing. She is excited to discontinue her knee brace soon. She has been working with PT. [facility] Medical History Neuropathy Habitual snoring Arthritis Asthma Overweight (BMI 25.0-29.9) GERD without esophagitis Hypertriglyceridemia Arthralgia Benign essential hypertension Surgical History (Updated 05/22/23 @ 10:05 by Vida Akbar) Hx of breast biopsy Status post total abdominal hysterectomy and bilateral salpingo-oophorectomy (SONJA-BSO) (~2012) Family History Father No problems noted. Mother No problems noted. 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 Cognitive needs: No Hearing needs: No Vision needs: No Review of Systems Const All systems reviewed & are unremarkable except as noted in HPI and below Physical Exam Vital Signs: BMI result Body Mass Index 31.1 Const General: no acute distress, alert and awake Orientation/consciousness: patient oriented x3 HEENT Head: Yes normocephalic and Yes atraumatic Eyes EOM: EOMs intact bilaterally Resp Effort & Inspection: normal respiratory effort and able to speak in complete sentences Cardio Jugular venous distension: no JVD Skin General skin exam: turgor normal Rashes: no rashes Neuro General: patient oriented x3 Extrem Other: inc c/d/i 0-90 Psych Appearance: grossly normal Affect: normal affect Attitude: cooperative Assessment & Plan Assessment & Plan (1) History of medial meniscus repair of right knee: Comment: Medial meniscus root repair 05/16/2023 NE Code(s): Z98.890 - Other specified postprocedural states Plan: Continue per root repair protocol October d/c brace in one week as per protocol f/u 6 weeks Plan Scribed for Oliver Jackson MD by Dequan Palmer, medical investigator, on 06/21/22 at 8:40 AM, EST. Coding Level of Care Code Global (73232) Diagnoses History of medial meniscus repair of right knee Z98.890
[2023-06-21 08:34] VITALS: BMI 31.1
== END 2023-06-21 08:47 | disposition home or self-care (01) ==
PROVIDERS: PCP Internal Medicine; Visit Provider Orthopaedic Surgery
DX: Z98.890 Other specified postprocedural states (principal)
CPT/HCPCS: 99024

== ENCOUNTER → 2023-06-21 08:32 | Outpatient (BNVA) | payer OTHER, SELFPAY | PROVIDERS: PCP Internal Medicine; Visit Provider Orthopaedic Surgery ==

== ENCOUNTER 2023-07-06 08:23 | Outpatient (AMB) | payer OTHER, SELFPAY ==
[2023-07-06 08:24] VITALS: BMI 31.1
--- NOTE | 2023-07-06 08:24 | MHC.OFFVIS ---
Intake Vital Signs 07/06/23 08:24 Height 5 ft 2 in Weight 170 lb 0.01 oz BMI 31.1 Intake Visit Reasons: painful hemorrhoids Intake Note: This patient presents for an assessment for painful hemorrhoids. Patient c/o; reports pain, unbale to sit. 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 Required: No Accompanied by: Self / Same As Patient Allergies Penicillins Allergy (Mild, Verified 07/06/23 08:43) UNKNOWN penicillin V Allergy (Unknown, Verified 07/06/23 08:43) rash acetaminophen [From Percocet] Allergy (Verified 07/06/23 08:43) Vomiting oxycodone [From Percocet] Allergy (Verified 07/06/23 08:43) Vomiting Medication List - Last Reconciled 07/06/23 by Emanuel Singh MD amlodipine 5 mg PO DAILY 30 days lisinopril 20 mg PO BEDTIME metoprolol tartrate 50 mg PO BID 90 days ondansetron 8 mg PO BID PRN 5 days oxycodone-acetaminophen 5-325 mg (Percocet) 1 tab PO Q4-6H PRN 7 days scopolamine base 1 patch transdermal Q3D PRN HPI painful hemorrhoids HPI Details She has known hemorrhoids and had undergone incision and drainage thrombus in the past She states that she has been having severe pain in her anus for about 3 days now. This has not improved and says she has had lot of discomfort. She denies any bleeding. She feels the hemorrhoid on the right side to be very swollen and tender. She therefore call the office this morning. She denies being constipated. She had surgery for torn meniscus last April, but says she has not really been taking narcotics. [facility] Medical History (Updated 07/06/23 @ 08:50 by Emanuel Singh MD) Thrombosed external hemorrhoid Neuropathy Habitual snoring Arthritis Asthma Overweight (BMI 25.0-29.9) GERD without esophagitis Hypertriglyceridemia Arthralgia Benign essential hypertension Surgical History Hx of breast biopsy Status post total abdominal hysterectomy and bilateral salpingo-oophorectomy (SONJA-BSO) (~2012) Family History Father No problems noted. Mother No problems noted. 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 Cognitive needs: No Hearing needs: No Vision needs: No Review of Systems Const Denies chills and Denies fever(s) Card Denies chest pain, Denies dyspnea and Denies dyspnea on exertion Resp Denies cough, Denies dyspnea and Denies dyspnea on exertion GI Denies hematochezia and Denies change in bowel habits Denies hematuria Musc Denies back pain and Denies limited range of motion Neuro Denies focal weakness and Denies convulsions Psych Denies depression and Denies mood swings Physical Exam Vital Signs: BMI result Body Mass Index 31.1 Const General: comfortable and no acute distress Orientation/consciousness: patient oriented x3 Neck Neck: Yes no lymphadenopathy Resp Auscultation: clear to auscultation bilaterally Cardio Rhythm: regular rhythm GI Other: Rectal exam shows a large external hemorrhoid on the right side with thrombosis. The hemorrhoid measures 3 cm in widest dimension and is very tender Palpation (GI): Soft to palpation, nontender and no guarding Neuro General: patient oriented x3 Office Procedures I&D Drain Details: She was placed in right lateral decubitus position. The left buttock was retracted with tape. Infiltrated the right perianal area with lidocaine 1%. I made an incision on the large thrombosed hemorrhoid using blade 15. I removed a lot of clots from within. I obtained hemostasis on oozing areas at the edge with silver nitrate The procedure was then completed. Dressings were applied She tolerated procedure well. She was instructed on Sitz baths. 99702-[place] of Hematoma/Fluid All charges added?: Procedure code (CPT) selection complete Assessment & Plan Assessment & Plan (1) Thrombosed external hemorrhoid: Code(s): K64.5 - Perianal venous thrombosis Plan: She has a large thrombosed external hemorrhoid on the right side. I told her that in view of severe pain which has not improved the past few days, it may be best to evacuate the thrombus.. I explained to her the technique of I&D with evacuation of the thrombus under local anesthesia. I explained the risks, benefits, and alternatives and she had given consent I&D and abrasion of multiple thrombi in the external hemorrhoid was done under local anesthesia in the office. She tolerated procedure well. I told her that we will need to see her in the office next week to re-examine as she may benefit for hemorrhoidectomy in the OR eventually in view of the very large hemorrhoid . I have instructed her on hot Sitz baths at home. She can take ibuprofen and tramadol pain. Medications: New tramadol 50 mg PO Q6H PRN 10 tabs 0RF pain Coding Level of Care Code Est Pt Level 3 (69119) Diagnoses Thrombosed external hemorrhoid K64.5 CPT Codes I&D Drain - Drain 5: 76333-[place] of Hematoma/Fluid ([id number])
== END 2023-07-06 08:44 | disposition home or self-care (01) ==
LOC: HO.HGS 08:23
PROVIDERS: PCP Internal Medicine; Visit Provider Surgery
DX: K64.5 Perianal venous thrombosis (principal)
CPT/HCPCS: 46083; 99213

== ENCOUNTER → 2023-07-06 08:23 | Outpatient (BNVA) | payer OTHER, SELFPAY | PROVIDERS: PCP Internal Medicine; Visit Provider Surgery | DX: K64.5 Perianal venous thrombosis (principal) | CPT/HCPCS: 46083 ==

== ENCOUNTER 2023-07-12 15:58 | Outpatient (AMB) | payer OTHER, SELFPAY ==
--- NOTE | 2023-07-12 15:59 | MHC.OFFVIS ---
Intake Vital Signs 07/12/23 16:04 Height 5 ft 2 in Weight 170 lb 0.01 oz BMI 31.1 BP 166/99 H Blood Pressure Location Rt brachial Position Sitting Pulse 77 Intake Visit Reasons: 1 wk follow up painful hemorrhoids Intake Note: This patient presents for a one week follow-up assessment for thrombosed external hemorrhoid. Pt c/o; reports rectal bleeding, reports no pain or discomfort at this time. 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 Required: No Accompanied by: Self / Same As Patient Allergies Penicillins Allergy (Mild, Verified 07/12/23 16:05) UNKNOWN penicillin V Allergy (Unknown, Verified 07/12/23 16:05) rash acetaminophen [From Percocet] Allergy (Verified 07/12/23 16:05) Vomiting oxycodone [From Percocet] Allergy (Verified 07/12/23 16:05) Vomiting Medication List - Last Reconciled 07/12/23 by Emanuel Singh MD amlodipine 5 mg PO DAILY 30 days lisinopril 20 mg PO BEDTIME metoprolol tartrate 50 mg PO BID 90 days ondansetron 8 mg PO BID PRN 5 days oxycodone-acetaminophen 5-325 mg (Percocet) 1 tab PO Q4-6H PRN 7 days scopolamine base 1 patch transdermal Q3D PRN tramadol 50 mg PO Q6H PRN HPI 1 wk follow up painful hemorrhoids HPI Details She had painful swollen and thrombosed hemorrhoids last week and I had done I&D and evacuation of the thrombosed here in the office under local anesthesia. She actually says that she feels much better now. She still notices blood on and off on wiping. Pain has improved significantly. She is able to sit down comfortably. [facility] Medical History (Updated 07/06/23 @ 08:50 by Emanuel Singh MD) Thrombosed external hemorrhoid Neuropathy Habitual snoring Arthritis Asthma Overweight (BMI 25.0-29.9) GERD without esophagitis Hypertriglyceridemia Arthralgia Benign essential hypertension Surgical History Hx of breast biopsy Status post total abdominal hysterectomy and bilateral salpingo-oophorectomy (SONJA-BSO) (~2012) Family History Father No problems noted. Mother No problems noted. 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 Cognitive needs: No Hearing needs: No Vision needs: No Physical Exam Vital Signs: Last Vital Signs Pulse 77 07/12/23 16:04 BP 166/99 H 07/12/23 16:04 BMI result Body Mass Index 31.1 Const General: comfortable and no acute distress Resp Effort & Inspection: normal respiratory effort Cardio Rate: regular rate GI Other: Rectal exam shows some significant residual edema of the initially thrombosed hemorrhoid, open wound from the thrombectomy but not as tender, no bleeding, no cellulitis Assessment & Plan Assessment & Plan (1) Thrombosed external hemorrhoid: Code(s): K64.5 - Perianal venous thrombosis Plan: She is doing much better after evacuation of the thrombosed. She is to continue with warm soaks to the area. I will see her again in the office for another check in about 2-3 weeks. I did explain to her the option of proceeding with hemorrhoidectomy as she has had problems with this hemorrhoid on and off for several years. Coding Level of Care Code Est Pt Level 2 (63084) Diagnoses Thrombosed external hemorrhoid K64.5
[2023-07-12 16:04] VITALS: BP 166/99; PULSE 77; BMI 31.1
== END 2023-07-12 16:14 | disposition home or self-care (01) ==
PROVIDERS: PCP Internal Medicine; Visit Provider Surgery
DX: K64.5 Perianal venous thrombosis (principal)
CPT/HCPCS: 99024

== ENCOUNTER → 2023-07-12 15:58 | Outpatient (BNVA) | payer OTHER, SELFPAY | PROVIDERS: PCP Internal Medicine; Visit Provider Surgery ==

== ENCOUNTER 2023-07-24 10:00 | Outpatient (RCR) | payer OTHER, SELFPAY ==
--- NOTE | 2023-05-25 15:47 | MHC.PT.EP ---
[facility] [place] Office [place] Office [place] Office [address] Andrew Lazaro [address] [phone] F: [phone] F: [phone] F: [phone] F: [phone] Physical Therapy Plan of Care Date of Evaluation: 05/25/23 Date of Surgery: 05/16/23 Diagnosis: R MEDIAL MENISCUS ROOT REPAIR Assessment: Pt IS 57 YO F S/P R MEDIAL MENISCUS ROOT REPAIR ON 05/16/23 (Pt IS 1 WK 2 DAYS PO TODAY). PRESENTS WITH R KNEE SWELLING, PAIN, LIMITED ROM AND STRENGTH. AMB WITH B CRUTCHES PWB R (IS SUPPOSED TO BE 25%). CRUTCHES TOO SHORT, SO EXCHANGED FOR TALLER ONES. SHOULD BENEFIT FROM PT TO HELP IMPROVE OVERALL ROM/STRENGTH, GT. TO USE [facility] MENISCAL ROOT REPAIR PO PROTOCOL PER ORTHO ORDER Frequency and Duration: The patient will be seen 1X/WK X 6 WKS Short Term Goals: 1. INCREASED AWARENESS R LE CARE 2. LESS SWELLING NOTED 3. GOOD PAT MOBILITY [facility] Goals: 1. R KNEE ROM 0-130 2. R QUAD/HS STRENGTH 5/5 EACH 3. DECREASED R KNEE PAIN AT LEAST 50% WITH ADLS 4. GT WITHOUT AD WITHOUT LIMP Treatment Plan: Modalities to reduce pain, spasms and effusion. Manual therapy to restore motion and function. Therapeutic exercise to improve strength and flexibility. Neuromuscular re-education for posture and balance. Therapeutic activities to return to functional activities of daily living. Electronically signed by: ANGELITO HARPER PT Please sign and return to therapist. Thank you for your referral.
--- NOTE | 2023-08-21 08:26 | MHC.PT.DC ---
[facility] [place] Office [place] Office [place] Office [address] Andrew Lazaro 140 [facility] [phone] F: [phone] F: [phone] F: [phone] F: [phone] Physical Therapy Discharge Report Diagnosis: R MEDIAL MENISCUS ROOT REPAIR Date of Surgery: 05/16/23 Date of Evaluation: 05/25/23 Date of Discharge: 08/21/23 Treatments to Date: 13 Cancellations to Date: No Shows to Date: Discharge Status: Achieved Goals Improved Function Independent with HEP Recommend MD Follow-up Discharge Summary: PER ASSESSMENT ON 07/24/23 BY CYNTHIA MENCHACA QUEEN'S COUNSEL Pt independent w/HEP Strength flex/ext=5/5 Significant increase in LEFS Electronically signed by: ANGELITO HARPER PT Please sign and return to therapist. Thank you for your referral.
--- NOTE | 2023-08-21 08:30 | MHC.PT.DC ---
[facility] [place] Office [place] Office [place] Office [address] Andrew Lazaro 140 [facility] [phone] F: [phone] F: [phone] F: [phone] F: [phone] Physical Therapy Discharge Report Diagnosis: R MEDIAL MENISCUS ROOT REPAIR Date of Surgery: 05/16/23 Date of Evaluation: 05/25/23 Date of Discharge: 08/21/23 Treatments to Date: 13 Cancellations to Date: No Shows to Date: Discharge Status: Achieved Goals Improved Function Independent with HEP Recommend MD Follow-up Discharge Summary: PER ASSESSMENT ON 07/24/23 BY CYNTHIA MENCHACA SIGN ERECTOR Pt independent w/HEP Strength flex/ext=5/5 Significant increase in LEFS Electronically signed by: ANGELITO HARPER PT Please sign and return to therapist. Thank you for your referral.
== END 2023-08-21 09:48 | disposition home or self-care (01) ==
LOC: HO.PT 10:00
PROVIDERS: PCP Internal Medicine; Visit Provider Physician Assistant
DX: S83.241A Other tear of medial meniscus, current injury, right knee, initial encounter (principal)
CPT/HCPCS: 97014; 97110; 97112; 97116; 97140; 97161; 97530

== ENCOUNTER 2023-07-27 09:59 | Outpatient (AMB) | payer OTHER, SELFPAY ==
[2023-07-27 10:09] VITALS: BMI 31.1
--- NOTE | 2023-07-27 10:09 | A.OFFVIS_ITS ---
Intake Vital Signs 07/27/23 10:09 Height 5 ft 2 in Weight 170 lb BMI 31.1 Intake Visit Reasons: PO-Rt Knee (Root Repair) 05/16/23 NE-F/U Intake Note: Leona is a 57 year old female who presents today for a 6 week post op appointment s/p right knee , Meniscal Root Repair 05/16/23 NE. Patient reports that she is doing well, she is doing home therapy and is ready to go back to work. Allergies Penicillins Allergy (Mild, Verified 07/27/23 10:11) UNKNOWN penicillin V Allergy (Unknown, Verified 07/27/23 10:11) rash acetaminophen [From Percocet] Allergy (Verified 07/27/23 10:11) Vomiting oxycodone [From Percocet] Allergy (Verified 07/27/23 10:11) Vomiting HPI PO-Rt Knee (Root Repair) 05/16/23 NE-F/U HPI Details Leona is a 58 year old woman who presents ~10 weeks S/P right MM root repair. She says she is doing well and has been performing at-home exercises. She feels ready to RTW at this time. [facility] Medical History Thrombosed external hemorrhoid Neuropathy Habitual snoring Arthritis Asthma Overweight (BMI 25.0-29.9) GERD without esophagitis Hypertriglyceridemia Arthralgia Benign essential hypertension Surgical History Hx of breast biopsy Status post total abdominal hysterectomy and bilateral salpingo-oophorectomy (SONJA-BSO) (~2012) Family History Father No problems noted. Mother No problems noted. 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 Cognitive needs: No Hearing needs: No Vision needs: No Review of Systems Const All systems reviewed & are unremarkable except as noted in HPI and below Physical Exam Vital Signs: BMI result Body Mass Index 31.1 Const General: no acute distress, alert and awake Orientation/consciousness: patient oriented x3 HEENT Head: Yes normocephalic and Yes atraumatic Eyes EOM: EOMs intact bilaterally Resp Effort & Inspection: normal respiratory effort and able to speak in complete sentences Cardio Jugular venous distension: no JVD Skin General skin exam: turgor normal Rashes: no rashes Neuro General: patient oriented x3 Extrem Other: Full painless ROM No effusion Neg Steinmen's No ttp Good quad strength Psych Appearance: grossly normal Affect: normal affect Attitude: cooperative Assessment & Plan Assessment & Plan (1) History of medial meniscus repair of right knee: Comment: Medial meniscus root repair 05/16/2023 NE Code(s): Z98.890 - Other specified postprocedural states Plan: May return to work. No cutting activities. Explained that full recovery can take up to a year and so should avoid aggressive activities. She understands Plan Prepared for Oliver Jackson MD by Dequan Palmer, medical payment poster, on 07/27/23 at 10:11 AM, EST. Coding Level of Care Code Global (66837) Diagnoses History of medial meniscus repair of right knee Z98.890
== END 2023-07-27 10:38 | disposition home or self-care (01) ==
PROVIDERS: PCP Internal Medicine; Visit Provider Orthopaedic Surgery
DX: Z98.890 Other specified postprocedural states (principal)
CPT/HCPCS: 99024

== ENCOUNTER → 2023-07-27 09:59 | Outpatient (BNVA) | payer OTHER, SELFPAY | PROVIDERS: PCP Internal Medicine; Visit Provider Orthopaedic Surgery ==

== ENCOUNTER 2024-02-22 15:08 | Outpatient (AMB) | payer OTHER, SELFPAY ==
[2024-02-22 15:12] VITALS: BP 140/100; PULSE 78; O2SAT 96
--- NOTE | 2024-02-22 15:12 | MHC.PC.OV ---
Vital Signs 02/22/24 15:12 02/22/24 15:45 Height 5 ft 2 in BP 140/100 H 170/100 H Blood Pressure Location Lt brachial Lt brachial Position Sitting Sitting Pulse 78 Pulse Source Pulse Oximeter Pulse Oximetry (%) 96 Oxygen Delivery Method Room Air Intake Visit Reasons: Annual Exam Escort Vehicle Driver Required: No Accompanied by: Self / Same As Patient Allergies Penicillins Allergy (Mild, Verified 02/24/24 11:20) UNKNOWN penicillin V Allergy (Unknown, Verified 02/24/24 11:20) rash acetaminophen [From Percocet] Allergy (Verified 02/24/24 11:20) Vomiting oxycodone [From Percocet] Allergy (Verified 02/24/24 11:20) Vomiting Medication List - Last Reconciled 02/24/24 by Grayson Lundberg MD amlodipine 5 mg PO DAILY 90 days lisinopril 20 mg PO BEDTIME metoprolol tartrate 50 mg PO BID 90 days ondansetron 8 mg PO BID PRN 5 days scopolamine base 1 patch transdermal Q3D PRN tramadol 50 mg PO Q6H PRN trazodone 50 mg PO BEDTIME PRN 30 days Tobacco use date assessed: 02/22/24 Dental Screening Dental Screen Date: 02/22/24 HPI Annual Exam HPI Details Patient comes in today for her annual physical examination States that she has gained a lot of weight recently although she declined being weighed today - states that she does not want to know exactly how much she has gained States that she has noticed that her blood pressure has been running high lately and is aware that this is most likely related to her weight gain Is wondering if she can be prescribed some Rx like Mounjaro or Ozempic to help her get the weight she has gained off [facility] States that she has also been experiencing trouble sleeping at night for a few weeks now States that she feels okay otherwise She denies any headaches or dizziness Denies any chest pains, no SOB No nausea/vomiting, no abdominal pain No change in bowel habits noted He denies any acute urinary symptoms She last had her annual mammogram done in March 2023 and is scheduled for her repeat mammogram next month She had a total hysterectomy years ago and does not require yearly gynecology exam and pap smear She has never had a screening colonoscopy done (by choice) and still does not want to have it done at this time [facility] Medical History (Updated 02/24/24 @ 15:45 by Grayson Lundberg MD) Insomnia Thrombosed external hemorrhoid Neuropathy Habitual snoring Arthritis Asthma Overweight (BMI 25.0-29.9) GERD without esophagitis Hypertriglyceridemia Arthralgia Benign essential hypertension Surgical History (Updated 02/24/24 @ 15:32 by Grayson Lundberg MD) History of medial meniscus repair of right knee Hx of breast biopsy Status post total abdominal hysterectomy and bilateral salpingo-oophorectomy (SONJA-BSO) (~2012) Family History Father No problems noted. Mother No problems noted. 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 1. Little interest or pleasure in doing things: not at all 2. Feeling down, depressed, or hopeless: not at all 3. Trouble falling or staying asleep, or sleeping too much: several days 4. Feeling tired or having little energy: several days 5. Poor appetite or overeating: not at all 6. Feeling bad about yourself - or that you are a failure or have let yourself or your family down: not at all 7. Trouble concentrating on things, such as reading the newspaper or watching television: not at all 8. Moving or speaking so slowly that other people could have noticed. Or the opposite - being so fidgety or restless that you have been moving around a lot more than usual: not at all 9. Thoughts that you would be better off or of hurting yourself in some way: not at all Total score: 2 Depression Screening Interpretation: Negative Depression Screening Done: Yes [id number] - PHQ-9 Billing: Yes Source: Developed by Drs. Segundo Blackmon, Isidoro Ornelas and colleagues, with an educational sharron from [employer]. Thrive Questionnaire Date Thrive assessed: 02/22/24 I am a: Patient What is your living situation today?: I have a steady place to live Within the past 12 months, did the food you bought not last and you didn't have the money to get more?: I choose not to answer this question Within the past 12 months, did you worry whether your food would run out before you got money to buy more?: I choose not to answer this question Do you have trouble paying for medicines?: No Do you have trouble getting transportation to medical appointments?: No Do you have trouble paying your heating and electricity bill?: Yes Do you have trouble taking care of your child, family member or friend?: No Do you have trouble with day-to-day activities such as bathing, preparing meals, shopping, managing finances, etc.?: No Are you currently unemployed and looking for a job?: No Are you interested in more education?: No Please select the resources that you would like help with: None Currently or been in a relationship where the following occur: I choose not to answer THRIVE Score: 1 AUDIT C Alcohol Use Questionnaire (AUDIT-C) 1. How often do you have a drink containing alcohol?: Never 3. How often do you have six or more drinks on one occasion?: Never Total Score: 0 Score Reviewed/Action Taken: Yes ARMIN-7 AMB Questionnaire ARMIN-7 Date ARMIN - 7 assessed: 02/22/24 Feeling nervous, anxious, or on edge: 0 = Not at all Not being able to stop or control worryin = Not at all Worrying too much about different things: 1 = Several days Trouble relaxin = Several days Being so restless that it is hard to sit still: 1 = Several days Becoming easily annoyed or irritable: 0 = Not at all Feeling afraid as if something awful might happen: 0 = Not at all Total ARMIN-7 score (0-4 normal; 5-9 mild; 10-14 moderate; 15-21 severe): 3 Source: Developed by Tati Alonzo Kurt Kroenke and colleagues, with an educational sharron from [employer]. Review of Systems Const Denies chills, Reports difficulty sleeping (increased for a few weeks now), Denies fatigue, Denies fever(s), Denies headache(s), Denies malaise and Reports weight gain Eyes Denies blurry vision, Denies change in vision, Denies irritation and Denies itchy eyes ENT Denies dysphagia, Denies dizziness, Denies otalgia, Denies headache(s), Denies nasal congestion, Denies neck pain, Denies odynophagia, Denies sinus pain and Denies sore throat Card Denies chest pain, Denies rapid heart rate, Denies irregular heart rhythm, Denies palpitations and Denies dyspnea Resp Denies chest congestion, Denies cough, Denies dyspnea and Denies wheezing GI Denies abdominal pain, Denies bloating, Denies constipation, Denies dysphagia, Denies heartburn, Denies diarrhea, Denies nausea, Denies odynophagia and Denies vomiting Denies hematuria, Denies urinary frequency, Denies dysuria, Denies urinary incontinence and Denies urinary urgency Musc Denies back pain, Denies arthralgias, Denies joint swelling, Denies muscle weakness, Denies neck pain and Reports numbness (on and off over the side of the right thigh) Skin/Breast Denies breast pain, Denies breast mass, Denies change in pigmentation, Denies lesions, Denies rash and Denies unusual bruising Neuro Denies dizziness, Denies headache(s), Reports numbness (on and off over the side of the right thigh) and Denies paresthesias Psych Denies anxiety and Denies depression Endo Denies fatigue and Denies palpitations Myke/Lymph Denies easy bruising Aller/Immun Denies itchy eyes and Denies wheezing Physical exam (Primary Care) Vital Signs: Last Vital Signs Pulse 78 02/22/24 15:12 BP 170/100 H 02/22/24 15:45 Pulse Ox 96 02/22/24 15:12 Oxygen Delivery Method Room Air 02/22/24 15:12 Tobacco/Smoking Status: Tobacco use Status Tobacco use date assessed 02/22/24 02/22/24 15:14 Patient Tobacco Use Status Never used Tobacco 02/22/24 15:14 e-Cigarette/Vaping Use Never Used 02/22/24 15:14 PHQ-9: PHQ-9 Score PHQ-9: Total score 2 02/24/24 15:23 Depression Screening Interpretation: Negative Thrive Assessment: Date of Thrive Assessment Date Thrive assessed 02/22/24 02/22/24 15:14 Currently or been in a relationship where the following occur: I choose not to answer Const General: no acute distress, alert and awake Orientation/consciousness: patient oriented x3 HENMT Head: Yes normocephalic and Yes atraumatic Ears: external ears normal, TM's normal bilaterally and EAC's normal General nose exam: No nasal discharge present Face and sinus: Yes normal facial exam and Yes sinuses nontender Teeth and gingiva: dentition normal Throat: Yes posterior oropharynx normal and Yes tonsils normal (no TP congestion) Eyes Eyelids: Yes eyelids normal Conjunctivae: conjunctivae normal Pupils: Equal, round and reactive pupils present EOM: EOMs intact bilaterally Neck Neck: Yes no lymphadenopathy and Yes supple Thyroid: Thyroid normal Resp Auscultation: clear to auscultation bilaterally, no rales and no wheezes Cardio Rate: regular rate Rhythm: regular rhythm Heart sounds: no murmurs GI Palpation (GI): Soft to palpation, nontender and No hepatosplenomegaly present Auscultation: normal bowel sounds General: Yes no CVA tenderness Back/Spine/Pelvis Back: no CVA tenderness Thoracic/Lumbar Spine: thoracic and lumbar spine normal to inspection Skin Lesions: no lesions Rashes: no rashes Neuro General: patient oriented x3, moves all extremities, no focal motor deficits and CN's II-XI intact bilaterally Cranial nerves: Yes Equal, round and reactive pupils present Cognition (Neuro): normal cognition Gait exam (Neuro): Normal gait present Extrem General: Yes no clubbing, cyanosis or edema Assessment and Plan Assessment & Plan (1) Annual physical exam: Code(s): Z00.00 - Encounter for general adult medical examination without abnormal findings Plan: Check labs She ip up-to-date with her annual mammogram; is scheduled for repeat mammogram next month She no longer has to continue annual gynecology exam and pap smear as she's had a total hysterectomy done years ago She has never had a screening colonoscopy done and continues to decline referral to GI for this - states that she will call for referral when she feels ready to do so She also declined offer to have her at least get Cologuard testing done (2) Benign essential hypertension: Code(s): I10 - Essential (primary) hypertension Plan: Reinforced low sodium diet - goal is systolic BP of at least 120 to 130 mm or less Continue Lisinopril 20 mg QD, Metoprolol 50 mg BID and Amlodipine 5 mg QD She is reminded to continue monitoring her blood pressure regularly (3) Mixed hyperlipidemia: Code(s): E78.2 - Mixed hyperlipidemia Plan: Her LDL cholesterol level went down to 138 mg/dl when checked last year (from 166 mg/dl back in February 2022) Reinforced low cholesterol diet Will recheck her fasting lipids and labs for follow up (4) Paresthesia of both lower extremities: Code(s): R20.2 - Paresthesia of skin Plan: EMG and NCV done back on 02/09/2011 revealed findings of right lateral femoral cutaneous neuropathy/meralgia paresthetica X-rays of the lumbar spine and both hips done last year came out normal Repeat EMG and NCV done in December 2021 revealed the same - (+) bilateral, right more than left, lateral femoral cutaneous neuropathy EMG was suggestive of a right upper lumbar radiculopathy (5) Vitamin D deficiency: Code(s): E55.9 - Vitamin D deficiency, unspecified Plan: Continue OTC Vitamin D3 2000 units QD Will recheck her Vitamin D level for follow up (6) Insomnia: Code(s): G47.00 - Insomnia, unspecified Qualifiers: Insomnia type: unspecified Qualified Code(s): G47.00 - Insomnia, unspecified Plan: Sleep hygiene discussed Will start her on a trial of Trazodone 50 mg Q HS PRN (7) Overweight (BMI 25.0-29.9): Code(s): E66.3 - Overweight Plan: Reinforced diet/exercise as tolerated/lose weight - she has reportedly gained a lot of weight recently but declined to be weighed today so we are unable to determine how much weight she has actually gained Plan Follow up in 6 months Orders: Orders Vitamin D 25-OH Total 02/23/24 E55.9 - Vitamin D deficiency, unspecified Hemoglobin A1c 02/23/24 E11.9 - Type 2 diabetes mellitus without complications Complete Blood Count Auto Diff 02/23/24 D64.9 - Anemia, unspecified Comprehensive [place]. Panel Fast 02/23/24 E78.00 - Pure hypercholesterolemia, unspecified Lipid Panel 02/23/24 E78.00 - Pure hypercholesterolemia, unspecified TSH reflex Free T4 02/23/24 E78.00 - Pure hypercholesterolemia, unspecified UA CC w/rflx Micro + Cult 02/23/24 R30.0 - Dysuria Medications: New trazodone 50 mg PO BEDTIME 30 days PRN 30 tabs 2RF sleep Review Patient declined Colonoscopy: 02/22/24 Patient declined Colon Cancer Screen Lab: 02/22/24 Coding Level of Care Code Est Pt Prev Care 40-64y(12235) Diagnoses Annual physical exam Z00.00 Benign essential hypertension I10 Mixed hyperlipidemia E78.2 Paresthesia of both lower extremities R20.2 Vitamin D deficiency E55.9 Insomnia, unspecified type G47.00 Insomnia type: unspecified Overweight (BMI 25.0-29.9) E66.3
[2024-02-22 15:45] VITALS: BP 170/100
== END 2024-02-22 15:53 | disposition home or self-care (01) ==
PROVIDERS: PCP Internal Medicine; Visit Provider Internal Medicine
DX: Z00.00 Encounter for general adult medical examination without abnormal findings (principal); I10 Essential (primary) hypertension; E78.2 Mixed hyperlipidemia; R20.2 Paresthesia of skin; E55.9 Vitamin D deficiency, unspecified; G47.00 Insomnia, unspecified; E66.3 Overweight
CPT/HCPCS: 99396

== ENCOUNTER 2024-02-23 07:09 | Outpatient (REF) | payer OTHER, SELFPAY ==
[2024-02-23 08:00] LABS: MANUAL DIFF FLAG NO
[2024-02-23 08:26] LABS: Basophils Absolute Auto 0.1 X10*3/uL (0.0-0.2); Basophils Percent Auto 0.8 % (0-2); Eosinophils Absolute Auto 0.2 X10*3/uL (0.0-0.4); Eosinophils Percent Auto 2.8 % (0-4); Hematocrit 41.3 % (37.0-47.0); Hemoglobin 13.7 g/dl (12.0-16.0); Imm Gran Abs Auto 0.15 X10*3/uL (0.00-0.03); Imm Gran Pct Auto 1.9 % (0.0-0.4); Lymphocytes Absolute Auto 2.8 X10*3/uL (1.2-4.9); Lymphocytes Percent Auto 36.1 % (20-40); Mean Corpuscular HGB Conc 33.2 g/dl (31.0-35.0); Mean Corpuscular Hemoglobin 31.5 pg (27.0-33.0); Mean Corpuscular Volume 94.9 fL (80.0-98.0); Mean Platelet Volume 9.1 fL (9.4-12.3); Monocytes Absolute Auto 0.6 X10*3/uL (0.1-1.2); Monocytes Percent Auto 7.3 % (2-11); Neutrophils Percent Auto 51.1 % (45-73); Platelet Count 231 X10*3/uL (160-400); Red Blood Count 4.35 X10*6/uL (4.20-5.50); Red Cell Distribution Width 12.6 % (11.0-16.0); White Blood Count 7.8 X10*3/uL (4.8-10.8)
[2024-02-23 08:32] LABS: Estimated Average Glucose 117 mg/dL; Hemoglobin A1c % 5.7 % (<6.0)
[2024-02-23 09:01] LABS: Appearance Urine Clear; Color Urine Yellow; Glucose Urine UA Negative (Negative); Leukocyte Esterase Urine Trace (Negative); Nitrite Urine Negative (Negative); Specific Gravity - Urine 1.015 (1.005-1.025); UMIC TRIGGER UACC YES; Urine Blood Negative (Negative); Urine Ketones Negative (Negative); Urine Protein Negative (Neg-Trace)
[2024-02-23 09:02] LABS: Alanine Aminotransferase 39 U/L (0-31); Albumin Level 4.2 g/dL (3.5-5.0); Alkaline Phosphatase 81 U/L (39-117); Anion Gap 12 (12-20); Aspartate Amino Transferase 25 U/L (5-31); Bilirubin Total 0.5 mg/dL (0.0-1.0); Blood Urea Nitrogen 12 mg/dL (9-16); Carbon Dioxide 27 mmol/L (22-29); Chloride 106 mmol/L (96-108); Cholesterol 204 mg/dL (<200); Estimated Glomerular Filt Rate > 60; Glucose Fasting 97 mg/dL (60-99); HDL Cholesterol 42 mg/dL (>40); LDL Cholesterol Calculated 121 mg/dL (<100); Sodium 141 mmol/L (135-145); Total Protein 7.2 g/dL (6.5-8.0); Triglycerides 206 mg/dL (<150)
[2024-02-23 09:09] LABS: Bacteria Urine None Seen (None Seen); Hyaline Casts Urine 0-2 /LPF (0-2); RBC Urine 0-2 /HPF (0-2); Squamous Epithelial Cell Urine 0-2 /HPF (0-2); WBC Urine 0-5 /HPF (0-5)
[2024-02-23 09:20] LABS: TSH reflex Free T4 1.83 uIU/mL (0.32-4.0); Vitamin D 25-OH Total 24.5 ng/mL (>30)
== END 2024-02-23 07:10 | disposition home or self-care (01) ==
LOC: HO.LAB 07:09
PROVIDERS: PCP Internal Medicine; Visit Provider Internal Medicine
DX: E55.9 Vitamin D deficiency, unspecified (principal); E11.9 Type 2 diabetes mellitus without complications; D64.9 Anemia, unspecified; E78.00 Pure hypercholesterolemia, unspecified
CPT/HCPCS: 36415; 80053; 80061; 81001; 81003; 82306; 83036; 84443; 85025

== ENCOUNTER 2024-03-05 13:09 | Outpatient (AMB) | payer OTHER, SELFPAY ==
--- NOTE | 2024-03-05 13:12 | MHC.OFFVIS ---
Vital Signs 03/05/24 13:17 Height 5 ft 2 in Weight 170 lb 0.01 oz BMI 31.1 BP 140/86 H Blood Pressure Location Lt brachial Position Sitting Pulse 57 Intake Visit Reasons: malignant neoplasm of colon Intake Note: This patient presents for colonoscopy screening. Pt c/o; reports no rectal bleeding, pain or constipation. Business Continuity Analyst Required: No Accompanied by: Self / Same As Patient Allergies Penicillins Allergy (Mild, Verified 03/05/24 13:18) UNKNOWN penicillin V Allergy (Unknown, Verified 03/05/24 13:18) rash acetaminophen [From Percocet] Allergy (Verified 03/05/24 13:18) Vomiting oxycodone [From Percocet] Allergy (Verified 03/05/24 13:18) Vomiting Medication List - Last Reconciled 03/05/24 by Emanuel Singh MD amlodipine 5 mg PO DAILY 90 days lisinopril 20 mg PO BEDTIME metoprolol tartrate 50 mg PO BID 90 days ondansetron 8 mg PO BID PRN 5 days scopolamine base 1 patch transdermal Q3D PRN tramadol 50 mg PO Q6H PRN trazodone 50 mg PO BEDTIME PRN 30 days HPI HPI malignant neoplasm of colon: Details: [age] year old female referred for screening colonoscopy. She has never had any colonoscopy in the past. She says she was has been scared of scheduling for colonoscopy She denies GI complaints. She has known hemorrhoids however and had thrombosed hemorrhoids last year requiring drainage here in the office. [facility] Medical History (Updated 03/04/24 @ 18:14 by Grayson Lundberg MD) Insomnia Thrombosed external hemorrhoid Neuropathy Habitual snoring Arthritis Asthma Overweight (BMI 25.0-29.9) GERD without esophagitis Hypertriglyceridemia Arthralgia Benign essential hypertension Surgical History (Updated 02/24/24 @ 15:32 by Grayson Lundberg MD) History of medial meniscus repair of right knee Hx of breast biopsy Status post total abdominal hysterectomy and bilateral salpingo-oophorectomy (SNOJA-BSO) (~2012) Family History Father No problems noted. Mother No problems noted. 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 Cognitive needs: No Hearing needs: No Vision needs: No Review of Systems Const Denies chills and Denies fever(s) Card Denies chest pain, Denies dyspnea and Denies dyspnea on exertion Resp Denies cough, Denies dyspnea and Denies dyspnea on exertion GI Denies hematochezia and Denies change in bowel habits Denies hematuria Musc Denies back pain and Denies limited range of motion Neuro Denies focal weakness and Denies convulsions Psych Denies depression and Denies mood swings Physical Exam Const General: comfortable and no acute distress Orientation/consciousness: patient oriented x3 Neck Neck: Yes no lymphadenopathy Resp Auscultation: clear to auscultation bilaterally Cardio Rhythm: regular rhythm GI Palpation (GI): Soft to palpation, nontender and no guarding Neuro General: patient oriented x3 Assessment & Plan Assessment & Plan (1) Colon cancer screening: Code(s): Z12.11 - Encounter for screening for malignant neoplasm of colon Category: Medical Plan: I explained to her the technique of colonoscopy for screening. I reviewed the risks including but not limited to bleeding, infections, bowel injury, as well as the benefits and alternatives. She understands and wants to proceed. She will be scheduled for screening colonoscopy at the hospital. Coding Level of Care Code Est Pt Level 3 (92858) Diagnoses Colon cancer screening Z12.11
[2024-03-05 13:17] VITALS: BP 140/86; PULSE 57; BMI 31.1
== END 2024-03-05 13:25 | disposition home or self-care (01) ==
PROVIDERS: PCP Internal Medicine; Visit Provider Surgery
DX: Z12.11 Encounter for screening for malignant neoplasm of colon (principal)
CPT/HCPCS: 99213

== ENCOUNTER → 2024-03-05 13:09 | Outpatient (BNVA) | payer OTHER, SELFPAY | PROVIDERS: PCP Internal Medicine; Visit Provider Surgery ==

== ENCOUNTER 2024-03-26 15:43 | Outpatient (REF) | payer OTHER, SELFPAY ==
--- NOTE | ~2024-03-26 | MM_ITS ---
EXAMINATION: MM SCREENING DIGITAL BREAST TOMOSYNTHESIS, BILATERAL CLINICAL INFORMATION: Screening. Asymptomatic. COMPARISON: Mammography: Comparison is made with available priors TECHNIQUE: Digital breast mammography with tomosynthesis is performed in both the craniocaudal and mediolateral oblique views along with computer-aided detection (CAD). FINDINGS: The breasts are heterogeneously dense, which may obscure small masses (ACR BI-RADS breast composition Category c). There are no significant masses, abnormal calcifications, or other abnormalities. MM/MM tomosynthesis screening BI IMPRESSION: No mammographic evidence of malignancy. ASSESSMENT: BI-RADS BI-RADS 1 - Negative RECOMMENDATION: Routine annual mammography screening. 1 year F/U This examination should not preclude the clinical evaluation of a suspicious palpable abnormality. This patient's information was entered into a reminder system with a target due date for their next mammogram. Electronically signed by: Laurie Orozco DO 04/07/2024 06:00 PM [facility]
== END 2024-03-26 15:44 | disposition home or self-care (01) ==
LOC: HO.MAMMO 15:43
PROVIDERS: PCP Internal Medicine; Visit Provider Internal Medicine
DX: Z12.31 Encounter for screening mammogram for malignant neoplasm of breast (principal)
CPT/HCPCS: 77063; 77067

== ENCOUNTER → 2024-03-26 15:45 | Outpatient (BNV) | payer OTHER, SELFPAY | PROVIDERS: PCP Internal Medicine; Visit Provider Internal Medicine | DX: Z12.31 Encounter for screening mammogram for malignant neoplasm of breast (principal) | CPT/HCPCS: 77063; 77067 ==

== ENCOUNTER 2024-03-28 06:51 | Day surgery (SDC) | payer OTHER, SELFPAY ==
[2024-03-26 07:19] VITALS: BMI 31.1
--- NOTE | 2024-03-26 13:44 | P.CONAN_ITS ---
Documented by User: Constanza Roger NP 03/26/24 13:44 HPI - Anesthesia Eval Consult details Narrative: 58yo F for Colonoscopy, possible polypectomy PMFSH Active Problems Active Problems: All Active Problems Colon cancer screening (Acute) Insomnia (Acute) Thrombosed external hemorrhoid (Acute) Tear of medial meniscus of right knee (Acute) Irritant dermatitis (Acute) Breast cancer screening by mammogram (Acute) Chest discomfort (Acute) Chest pain (Acute) Recurrent right knee instability (Acute) Lower back pain (Acute) Lumbar radiculopathy (Acute) Lateral femoral cutaneous neuropathy (Acute) Vitamin D deficiency (Acute) Mixed hyperlipidemia (Acute) Right knee pain (Acute) Paresthesia of both lower extremities (Acute) Annual physical exam (Acute) Overweight (BMI 25.0-29.9) (Acute) GERD without esophagitis (Acute) Hypertriglyceridemia (Acute) Arthralgia (Acute) Benign essential hypertension (Acute) Past Medical History Medical History Insomnia Thrombosed external hemorrhoid Neuropathy Habitual snoring Arthritis Asthma Overweight (BMI 25.0-29.9) GERD without esophagitis Hypertriglyceridemia Arthralgia Benign essential hypertension Family History Family History Father No problems noted. Mother No problems noted. Family history of problems with anesthesia: No Surgical History Surgical History History of medial meniscus repair of right knee Hx of breast biopsy Status post total abdominal hysterectomy and bilateral salpingo-oophorectomy (SONJA-BSO) (~2012) History of Problems with Anesthesia: Yes (PONV. Scop doesn't relieve. 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 Cognitive needs: No Hearing needs: No Vision needs: No Meds Allergies Allergy/AdvReac Type Severity Reaction Status Date / Time acetaminophen [From Percocet] Allergy Intermediate Vomiting Verified 03/28/24 07:01 oxycodone [From Percocet] Allergy Intermediate Vomiting Verified 03/28/24 07:01 penicillin V Allergy Mild Rash Verified 03/28/24 07:01 Penicillins Allergy Mild Rash Verified 03/28/24 07:01 Exam Height,Weight and Vital Signs: Height 5 ft 2 in Weight 77.111 kg Assessment and Plan Assessment Anesthesia Assessment: Chart Reviewed Final Anesthetic Review Family History of Problems with Anesthesia: No History of Problems with Anesthesia: Yes (PONV. Scop doesn't relieve. Will try aponvie.) Documented by User: Jessenia Jara MD 03/28/24 07:16 [facility] Past Medical History Medical History Insomnia Thrombosed external hemorrhoid Neuropathy Habitual snoring Arthritis Asthma Overweight (BMI 25.0-29.9) GERD without esophagitis Hypertriglyceridemia Arthralgia Benign essential hypertension Family History Family History Father No problems noted. Mother No problems noted. Surgical History Surgical History History of medial meniscus repair of right knee Hx of breast biopsy Status post total abdominal hysterectomy and bilateral salpingo-oophorectomy (SONJA-BSO) (~2012) Social History Social History Housing: House Are you a primary respiratory care instructor to a significant other at home: Yes Do you presently have visiting nurse or other home services: No Alcohol intake: never Patient Tobacco Use Status: Never used Tobacco e-Cigarette/Vaping Use: Never Used Second Hand Smoke Exposure: Yes Advance Directives: No Advance Directives Information Provided: Yes service: No Current occupational status: employed 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 Cognitive needs: No Hearing needs: No Vision needs: No Meds Allergies Allergy/AdvReac Type Severity Reaction Status Date / Time acetaminophen [From Percocet] Allergy Intermediate Vomiting Verified 03/28/24 07:01 oxycodone [From Percocet] Allergy Intermediate Vomiting Verified 03/28/24 07:01 penicillin V Allergy Mild Rash Verified 03/28/24 07:01 Penicillins Allergy Mild Rash Verified 03/28/24 07:01 Exam Airway Mallampati Class: II TM Dist: >3cm Neck ROM: Full Partial: Upper Heart: rrr Lungs: cta Assessment and Plan Assessment Anesthesia Assessment: Anesthesia Plan Discussed Final Anesthetic Review NPO: Yes ASA Class: II Final Preanesthetic Review: No Changes in Pt Med Stat, Meds/Allgs Chart Reviewed and Consent Obtained/Reviewed Patient Risk: Low Procedure Risk: Low Anesthetic Plan Anesthetic Plan: MAC: Disposition: Standard PACU
[2024-03-28 07:10] VITALS: BP 130/91; PULSE 56; RESP 16; TEMP 36.3; O2SAT 98; BMI 29.7
--- NOTE | 2024-03-28 08:20 | MHC.SHP ---
Pre-Procedural Eval Section A - 24 Hr Update-Section A only Date of Service: 03/28/24 The patient is an INPATIENT: No Changes since office visit: No Cold of Flu in the past 2 weeks, No New Medical Problems, No Changes in Medication and No Patient answered all questions The patient has been examined within 24 hours of the surgical procedure. The History & Physical has been completed within 30 days and I have reviewed it.: Yes Section B - Complete if H&P > 30 days Chief Complaint: Encounter for screening for malignant neoplasm of Allergies: Allergies Allergy/AdvReac Type Severity Reaction Status Date / Time acetaminophen [From Percocet] Allergy Intermediate Vomiting Verified 03/28/24 07:01 oxycodone [From Percocet] Allergy Intermediate Vomiting Verified 03/28/24 07:01 penicillin V Allergy Mild Rash Verified 03/28/24 07:01 Penicillins Allergy Mild Rash Verified 03/28/24 07:01 Plan I have reviewed the history and physical and performed a pertinent physical examination on my patient. No changes have occurred unless specified. Time Spent With Patient Time: Total time managing care of this patient today ____ minutes.
--- NOTE | 2024-03-28 08:55 | W.PM.OPN ---
Operative Note Operative Note Date of Service: 03/28/24 Narrative: Preop diagnosis: Colon cancer screening Postop diagnosis: Occasional diverticuli throughout the colon otherwise normal colonoscopy findings Ext hemorrhoids Procedure: Colonoscopy Surgeon: Emanuel Singh MD The patient is a 58 year female here for screening colonoscopy. She understood the technique of the planned procedure as well as the risks, benefits, and alternatives. The patient was brought to the operating room and placed in left lateral decubitus position under monitored anesthesia care. A surgical time-out was done. A full digital rectal exam was done and this did not reveal any significant anal lesions. She did have some large external hemorrhoids. The tip of the Olympus colonoscope was gently introduced through the anal orifice advanced with insufflation all the way to the cecum. The cecum was intubated. The cecum was identified by visualization of the ileocecal valve as well as the appendiceal orifice. The cecal mucosa was unremarkable. The scope was gradually withdrawn with careful examination of the entire colonic mucosa being done with scope withdrawal. The patient had adequate bowel prep so it was unlikely that any lesion may have been missed. She had occasional scattered diverticuli throughout the colon. The rectum was reached and there were no lesions seen. There were large external hemorrhoids in the anal orifice. The scope was then withdrawn completely with desufflation The patient tolerated the procedure well. There were no immediate complications. She falls at average risk for colon cancer so her next colonoscopy may be in the next 10 years.
[2024-03-28 09:00] VITALS: BP 91/56; PULSE 57; RESP 16; TEMP 36.1; O2SAT 94
[2024-03-28 09:05] VITALS: BP 96/55; PULSE 55; RESP 16; O2SAT 97
[2024-03-28 09:15] VITALS: BP 109/74; PULSE 56; RESP 16; TEMP 36.1; O2SAT 98
== END 2024-03-28 09:50 | disposition home or self-care (01) ==
PROVIDERS: PCP Internal Medicine; Visit Provider Surgery
PROC: 0DJD8ZZ Inspection of Lower Intestinal Tract, Via Natural or Artificial Opening Endoscopic (ICD-10-PCS; CPT 45378; principal; 2024-03-28 08:30)
DX: Z12.11 Encounter for screening for malignant neoplasm of colon (principal); K57.30 Diverticulosis of large intestine without perforation or abscess without bleeding; K64.4 Residual hemorrhoidal skin tags; K21.9 Gastro-esophageal reflux disease without esophagitis; I10 Essential (primary) hypertension; G62.9 Polyneuropathy, unspecified; J45.909 Unspecified asthma, uncomplicated; E78.1 Pure hyperglyceridemia; E66.3 Overweight; Z68.31 Body mass index [BMI] 31.0-31.9, adult; Z79.899 Other long term (current) drug therapy; Z88.0 Allergy status to penicillin; Z88.5 Allergy status to narcotic agent; Z98.890 Other specified postprocedural states
CPT/HCPCS: 45378; J2003; J2704

== ENCOUNTER → 2024-03-28 06:51 | Outpatient (BNV) | payer OTHER, SELFPAY | PROVIDERS: PCP Internal Medicine; Visit Provider Surgery | DX: Z12.11 Encounter for screening for malignant neoplasm of colon (principal); K64.8 Other hemorrhoids | CPT/HCPCS: 45378 ==

== ENCOUNTER 2024-04-10 09:10 | Outpatient (AMB) | payer OTHER, SELFPAY ==
--- NOTE | 2024-04-10 09:10 | MHC.OFFVIS ---
Intake Visit Reasons: s/p colonoscopy Intake Note: Teleahelath to discuss colonoscopy results. Education Associate Required: No Accompanied by: Self / Same As Patient Allergies acetaminophen [From Percocet] Allergy (Intermediate, Verified 04/10/24 09:11) Vomiting oxycodone [From Percocet] Allergy (Intermediate, Verified 04/10/24 09:11) Vomiting penicillin V Allergy (Mild, Verified 04/10/24 09:11) Rash Penicillins Allergy (Mild, Verified 04/10/24 09:11) Rash HPI HPI s/p colonoscopy: Details: She had undergone colonoscopy for screening last 03/28/2024. She tolerated procedure. This phone visit is to discuss the findings. She denies complaints at this [facility] Medical History Insomnia Thrombosed external hemorrhoid Neuropathy Habitual snoring Arthritis Asthma Overweight (BMI 25.0-29.9) GERD without esophagitis Hypertriglyceridemia Arthralgia Benign essential hypertension Surgical History History of medial meniscus repair of right knee Hx of breast biopsy Status post total abdominal hysterectomy and bilateral salpingo-oophorectomy (SONJA-BSO) (~2012) Family History Father No problems noted. Mother No problems noted. 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 Cognitive needs: No Hearing needs: No Vision needs: No Review of Systems Const Denies chills and Denies fever(s) Resp Denies cough GI Denies abdominal pain Telehealth Telehealth Telehealth Platform: Telephone Location of provider rendering services: practice address Location of patient: other (Work) Patient Identification confirmed using: Name, : Yes Telehealth method: voice only Patient verbally consented to treatment: Yes Patient verbally consented to billing insurance company: Yes Patient informed of any privacy concerns related to visit: Yes Assessment & Plan Assessment & Plan (1) Colon cancer screening: Code(s): Z12.11 - Encounter for screening for malignant neoplasm of colon Category: Medical Plan: Status post colonoscopy. She had diverticulosis but no other pathology was noted. She had no polyps. She falls at average risk for colon cancer. Her next colonoscopy may be in the next 10 years.. This was a telehealth visit. Coding Level of Care Code Procedure Only Diagnoses Colon cancer screening Z12.11
== END 2024-04-10 09:15 | disposition home or self-care (01) ==
LOC: HO.HGS 09:10
PROVIDERS: PCP Internal Medicine; Visit Provider Surgery
DX: K57.90 Diverticulosis of intestine, part unspecified, without perforation or abscess without bleeding (principal)
CPT/HCPCS: 99441

== ENCOUNTER → 2024-04-10 09:10 | Outpatient (BNVA) | payer OTHER, SELFPAY | PROVIDERS: PCP Internal Medicine; Visit Provider Surgery ==

== ENCOUNTER → 2024-07-24 10:25 | Outpatient (BNVA) | payer OTHER, SELFPAY | PROVIDERS: PCP Internal Medicine | DX: R06.02 Shortness of breath (principal); J45.909 Unspecified asthma, uncomplicated; R09.81 Nasal congestion; R06.89 Other abnormalities of breathing; R05.8 Other specified cough | CPT/HCPCS: 96127 ==

== ENCOUNTER → 2024-07-24 10:25 | Outpatient (AMB) ==
--- NOTE | 2024-07-24 10:37 | MHC.PC.OV ---
Vital Signs 07/24/24 10:37 Height 5 ft 2 in Weight 172 lb 4 oz BMI 31.5 BP 116/80 Blood Pressure Location Lt brachial Position Sitting Pulse 69 Pulse Source Pulse Oximeter Pulse Oximetry (%) 96 Oxygen Delivery Method Room Air Intake Visit Reasons: congestion, asthma Watermaster Required: No Accompanied by: Self / Same As Patient Allergies acetaminophen [From Percocet] Allergy (Intermediate, Verified 07/24/24 10:47) Vomiting oxycodone [From Percocet] Allergy (Intermediate, Verified 07/24/24 10:47) Vomiting penicillin V Allergy (Mild, Verified 07/24/24 10:47) Rash Penicillins Allergy (Mild, Verified 07/24/24 10:47) Rash Medication List - Last Reconciled 07/24/24 by BRAYAN Armijo amlodipine 5 mg PO DAILY 90 days lisinopril 20 mg PO BEDTIME metoprolol tartrate 50 mg PO BID 90 days trazodone 50 mg PO BEDTIME PRN 30 days triazolam 0.25 mg PO BEDTIME PRN Tobacco use date assessed: 07/24/24 Dental Screening Dental Screen Date: 07/24/24 Did you have a dental visit in the last 12 months?: Yes Did you have a dental problem in the last 6 months where you did not have access to dental care?: No Was dental information given to patient?: Patient has dentist HPI congestion, asthma HPI Details The patient is a 59-year-old female with significant past medical history of asthma, GERD without esophagitis Patient is presenting with reports of a week history of upper respiratory congestion Reports a history of asthma without treatments. Reports that she uses breathing techniques usually Patient reports that she has been coughing up greenish colored secretions Reports that she had a fever on Sunday and took Tylenol every 4 hours with positive that day Reports sore throat with coughing-reports that she has been drinking tio tea with some effects Reports that as needed she uses Zyrtec but can not use nasal spray due to nosebleeds Reports that she does get a headache with coughing but she also has migraines chronically Reports that at times she feels lightheaded, reports shortness of breath with exertion and audible wheezes On exam the patient was noted to have inspiratory rhonchi, concerns for pneumonia-will treat the patient with doxycycline b.i.d. times 7 days [facility] Medical History Insomnia Thrombosed external hemorrhoid Neuropathy Habitual snoring Arthritis Asthma Overweight (BMI 25.0-29.9) GERD without esophagitis Hypertriglyceridemia Arthralgia Benign essential hypertension Surgical History History of medial meniscus repair of right knee Hx of breast biopsy Status post total abdominal hysterectomy and bilateral salpingo-oophorectomy (SONJA-BSO) (~2012) Family History Father No problems noted. Mother No problems noted. 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 1. Little interest or pleasure in doing things: not at all 2. Feeling down, depressed, or hopeless: not at all 3. Trouble falling or staying asleep, or sleeping too much: several days 4. Feeling tired or having little energy: several days 5. Poor appetite or overeating: not at all 6. Feeling bad about yourself - or that you are a failure or have let yourself or your family down: not at all 7. Trouble concentrating on things, such as reading the newspaper or watching television: not at all 8. Moving or speaking so slowly that other people could have noticed. Or the opposite - being so fidgety or restless that you have been moving around a lot more than usual: not at all 9. Thoughts that you would be better off or of hurting yourself in some way: not at all Total score: 2 Depression Screening Interpretation: Negative Depression Screening Done: Yes 89727 - PHQ-9 Billing: Yes Source: Developed by Drs. Segundo Blackmon, Tati Comer, Isidoro Cabrera and colleagues, with an educational sharron from [employer]. Thrive Questionnaire Date Thrive assessed: 07/24/24 I am a: Patient What is your living situation today?: I have a steady place to live Within the past 12 months, did the food you bought not last and you didn't have the money to get more?: I choose not to answer this question Within the past 12 months, did you worry whether your food would run out before you got money to buy more?: I choose not to answer this question Do you have trouble paying for medicines?: No Do you have trouble getting transportation to medical appointments?: No Do you have trouble paying your heating and electricity bill?: Yes Do you have trouble taking care of your child, family member or friend?: No Do you have trouble with day-to-day activities such as bathing, preparing meals, shopping, managing finances, etc.?: No Are you currently unemployed and looking for a job?: No Are you interested in more education?: No Please select the resources that you would like help with: None Currently or been in a relationship where the following occur: I choose not to answer THRIVE Score: 1 AUDIT C Alcohol Use Questionnaire (AUDIT-C) 1. How often do you have a drink containing alcohol?: Monthly or less 2. How many drinks containing alcohol do you have on a typical day when you are drinking?: 1 or 2 3. How often do you have six or more drinks on one occasion?: Never Total Score: 1 Score Reviewed/Action Taken: Yes ARMIN-7 AMB Questionnaire ARMIN-7 Date ARMIN - 7 assessed: 07/24/24 Feeling nervous, anxious, or on edge: 0 = Not at all Not being able to stop or control worryin = Not at all Worrying too much about different things: 1 = Several days Trouble relaxin = Several days Being so restless that it is hard to sit still: 1 = Several days Becoming easily annoyed or irritable: 0 = Not at all Feeling afraid as if something awful might happen: 0 = Not at all Total ARMIN-7 score (0-4 normal; 5-9 mild; 10-14 moderate; 15-21 severe): 3 Source: Developed by Drs. Segundo Blackmon, Tati Comer, Isidoro Cabrera and colleagues, with an educational sharron from [employer]. Review of Systems Const Details: Denies chills, Denies fatigue, Denies fever(s), Denies headache(s) and Denies weakness EENT Denies change in vision, Denies dizziness, Denies headache(s), Denies hearing loss, + nasal congestion, Denies sinus pain, Denies sinus pressure and +mild sore throat with coughing Card Denies chest pain, + lightheadedness, + dyspnea and Denies other (palpitations) Resp + productive cough, +dyspnea and + wheezing GI Denies abdominal pain, Denies melena, Denies hematochezia, Denies change in bowel habits, Denies dyspepsia and Denies nausea Denies hematuria and Denies dysuria Musc Denies abnormal gait, Denies myalgias, Denies arthralgias, Denies numbness and Denies tingling Skin/Breast Denies rash, Denies unusual bruising and Denies wounds Neuro Denies abnormal gait, Denies dizziness, Denies headache(s), Denies memory loss, Denies numbness, Denies Sensory deficit (Neuro), Denies tingling and Denies weakness Psych Denies anxiety, Denies depression and Denies memory loss Endo Denies cold intolerance, Denies fatigue, Denies heat intolerance, Denies polydipsia and Denies polyuria Myke/Lymph Denies easy bleeding and Denies easy bruising Aller/Immun Denies wheezing Physical exam (Primary Care) Vital Signs: Last Vital Signs Pulse 69 07/24/24 10:37 BP 116/80 07/24/24 10:37 Pulse Ox 96 07/24/24 10:37 Oxygen Delivery Method Room Air 07/24/24 10:37 BMI result Body Mass Index 31.5 Tobacco/Smoking Status: Tobacco use Status Tobacco use date assessed 07/24/24 07/24/24 10:41 Patient Tobacco Use Status Never used Tobacco 07/24/24 10:41 e-Cigarette/Vaping Use Never Used 07/24/24 10:41 PHQ-9: PHQ-9 Score PHQ-9: Total score 2 07/26/24 23:10 Depression Screening Interpretation: Negative Thrive Assessment: Date of Thrive Assessment Date Thrive assessed 07/24/24 07/24/24 10:41 Currently or been in a relationship where the following occur: I choose not to answer Const Other: General: no acute distress, well developed, alert and awake Nutritional Appearance: well nourished Orientation/consciousness: patient oriented x3 HENMT Head: Yes normocephalic and Yes atraumatic Ears: hearing grossly normal bilaterally and TM's normal bilaterally General nose exam: Normal external nose present and bilateral nares erythema with boggy turbinates Mouth: Normal oral and palatal mucosa present and moist mucous membranes Eyes Pupils: Equal, round and reactive pupils present and Pupil accommodation reflex normal EOM: EOMs intact bilaterally Neck Neck: Yes normal visual inspection, Yes no lymphadenopathy and Yes trachea midline Thyroid: Thyroid normals Lymphatic: no lymphadenopathy noted Resp Effort & Inspection: normal respiratory effort Auscultation: Inspiratory rhonchi throughout Cardio Rate: regular rate Rhythm: regular rhythm Heart sounds: S1 normal heart sound present, S2 normal heart sound present, no gallops, no murmurs and no rubs GI Palpation (GI): Abdominal is soft and nontender to palpation Auscultation: normal bowel sounds General: Yes no CVA tenderness Skin General: warm and dry. Normal skin color. Normal skin turgor Lesions: no lesions Nails: normal Extrem General: Yes normal to inspection, No edema and No calf tenderness Psych Appearance: grossly normal Affect: normal affect Attitude: cooperative Thought process: Normal thought process present Coding Level of Care Code Est Pt Level 4 (39418) Diagnoses Shortness of breath R06.02 Wheezes R06.2 Nasal congestion R09.81 Abnormal breath sounds R06.89 Productive cough R05.8 Additional Codes PHQ-9 - 07690 - PHQ-9 Billing: Yes ([id number]) Time Spent (min) 31 Assessment & Plan Assessment & Plan (1) Shortness of breath: Code(s): R06.02 - Shortness of breath Category: Medical Plan: History of asthma without treatment. Patient reports that she has been managing her asthma with breathing exercises Albuterol sulfate 90 mcg/actuation 1 inhalation q.i.d. p.r.n. ordered (2) Wheezes: Code(s): R06.2 - Wheezing Category: Medical Plan: Albuterol sulfate 90 mcg/actuation 1 inhalation q.i.d. p.r.n. and prednisone taper ordered (3) Nasal congestion: Code(s): R09.81 - Nasal congestion Category: Medical Plan: Reports that she can not use nasal spray due to nosebleeds Prednisone taper ordered (4) Abnormal breath sounds: Code(s): R06.89 - Other abnormalities of breathing Category: Medical Plan: Doxycycline 100 mg b.i.d. x7 days ordered (5) Productive cough: Code(s): R05.8 - Other specified cough Category: Medical Plan: Mucinex 600 mg b.i.d. and doxycycline 100 mg b.i.d. x7 days ordered Plan Increase fluids intake, contact office if symptoms worsen or not relenting Follow up as scheduled next month Medications: New albuterol sulfate 90 mcg/actuation 1 inh inhalation QID PRN 8.5 grams 0RF shortness of breath or wheezing guaifenesin ER (Mucinex) 600 mg PO BID 30 tabs 0RF doxycycline hyclate 100 mg PO BID 7 days 14 caps 0RF prednisone see taper instructions take 4 tabs x 2 days, take 3 tabs x 2 days, take 2 tabs x2 days, take 1 tab x2 days =20 tabs for 8 days 10 mg PO DIRECTED 20 tabs 0RF
== END | disposition home or self-care (01) ==
DX: R06.02 Shortness of breath (principal); R06.2 Wheezing; R09.81 Nasal congestion; R06.89 Other abnormalities of breathing; R05.8 Other specified cough

== ENCOUNTER 2024-08-25 15:52 | Outpatient (AMB) | payer OTHER, SELFPAY ==
--- NOTE | 2024-08-25 16:07 | MHC.PC.OV ---
Vital Signs 08/25/24 16:08 Height 5 ft 2 in BMI Reason not done Patient refused/unable BP 132/80 Blood Pressure Location Lt brachial Position Sitting Pulse 65 Pulse Source Pulse Oximeter Pulse Oximetry (%) 96 Oxygen Delivery Method Room Air Intake Visit Reasons: 6 month f/u Burlap Bag Sewer Required: No Accompanied by: Self / Same As Patient Allergies acetaminophen [From Percocet] Allergy (Intermediate, Verified 08/25/24 16:08) Vomiting oxycodone [From Percocet] Allergy (Intermediate, Verified 08/25/24 16:08) Vomiting penicillin V Allergy (Mild, Verified 08/25/24 16:08) Rash Penicillins Allergy (Mild, Verified 08/25/24 16:08) Rash Tobacco use date assessed: 08/25/24 Dental Screening Dental Screen Date: 08/25/24 Did you have a dental visit in the last 12 months?: Yes Did you have a dental problem in the last 6 months where you did not have access to dental care?: No Was dental information given to patient?: Patient has dentist HPI 6 month f/u HPI Details The patient [facility] Medical History Insomnia Thrombosed external hemorrhoid Neuropathy Habitual snoring Arthritis Asthma Overweight (BMI 25.0-29.9) GERD without esophagitis Hypertriglyceridemia Arthralgia Benign essential hypertension Surgical History History of medial meniscus repair of right knee Hx of breast biopsy Status post total abdominal hysterectomy and bilateral salpingo-oophorectomy (SONJA-BSO) (~2012) Family History Father No problems noted. Mother No problems noted. 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 1. Little interest or pleasure in doing things: not at all 2. Feeling down, depressed, or hopeless: not at all 3. Trouble falling or staying asleep, or sleeping too much: several days 4. Feeling tired or having little energy: several days 5. Poor appetite or overeating: not at all 6. Feeling bad about yourself - or that you are a failure or have let yourself or your family down: not at all 7. Trouble concentrating on things, such as reading the newspaper or watching television: not at all 8. Moving or speaking so slowly that other people could have noticed. Or the opposite - being so fidgety or restless that you have been moving around a lot more than usual: not at all 9. Thoughts that you would be better off or of hurting yourself in some way: not at all Total score: 2 Depression Screening Interpretation: Negative Depression Screening Done: Yes 23811 - PHQ-9 Billing: Yes Source: Developed by Drs. Segundo Blackmon, Tati Comer, Isidoro Cabrera and colleagues, with an educational sharron from [employer]. Thrive Questionnaire Date Thrive assessed: 08/25/24 I am a: Patient What is your living situation today?: I have a steady place to live Within the past 12 months, did the food you bought not last and you didn't have the money to get more?: I choose not to answer this question Within the past 12 months, did you worry whether your food would run out before you got money to buy more?: I choose not to answer this question Do you have trouble paying for medicines?: No Do you have trouble getting transportation to medical appointments?: No Do you have trouble paying your heating and electricity bill?: Yes Do you have trouble taking care of your child, family member or friend?: No Do you have trouble with day-to-day activities such as bathing, preparing meals, shopping, managing finances, etc.?: No Are you currently unemployed and looking for a job?: No Are you interested in more education?: No Please select the resources that you would like help with: None Currently or been in a relationship where the following occur: I choose not to answer THRIVE Score: 1 AUDIT C Alcohol Use Questionnaire (AUDIT-C) 1. How often do you have a drink containing alcohol?: Monthly or less 2. How many drinks containing alcohol do you have on a typical day when you are drinking?: 1 or 2 3. How often do you have six or more drinks on one occasion?: Never Total Score: 1 Score Reviewed/Action Taken: Yes ARMIN-7 AMB Questionnaire ARMIN-7 Date ARMIN - 7 assessed: 08/25/24 Feeling nervous, anxious, or on edge: 0 = Not at all Not being able to stop or control worryin = Not at all Worrying too much about different things: 1 = Several days Trouble relaxin = Several days Being so restless that it is hard to sit still: 1 = Several days Becoming easily annoyed or irritable: 0 = Not at all Feeling afraid as if something awful might happen: 0 = Not at all Total ARMIN-7 score (0-4 normal; 5-9 mild; 10-14 moderate; 15-21 severe): 3 Source: Developed by Drs. Segundo Blackmon, Tati Comer, Isidoro Cabrera and colleagues, with an educational sharron from [employer]. Physical exam (Primary Care) Vital Signs: Last Vital Signs Pulse 65 08/25/24 16:08 BP 132/80 08/25/24 16:08 Pulse Ox 96 08/25/24 16:08 Oxygen Delivery Method Room Air 08/25/24 16:08 Tobacco/Smoking Status: Tobacco use Status Tobacco use date assessed 08/25/24 08/25/24 16:14 Patient Tobacco Use Status Never used Tobacco 08/25/24 16:14 e-Cigarette/Vaping Use Never Used 08/25/24 16:14 PHQ-9: PHQ-9 Score PHQ-9: Total score 2 08/25/24 16:23 Depression Screening Interpretation: Negative Thrive Assessment: Date of Thrive Assessment Date Thrive assessed 08/25/24 08/25/24 16:14 Currently or been in a relationship where the following occur: I choose not to answer Immunizations pneumoc 20-juan conj-dip cr(PF) 0.5 mL IM syringe Performing Provider: BRAYAN Armijo [place] [facility] [place] [place] [facility] Administered by: USAMA Javier on 08/25/24 16:39 Dose Route Admin Location Dispensed Lot Number Expiration Date [facility] Retort Loader 0.5 mL IM Left Deltoid 0.5 mL [id number] 10/16/25 [employer]/PFIZER VIS Given Date VIS Provided VIS Publication Date 08/25/24 Single Vaccine 21 Eligibility Eligibility Date Funding Source Not C Eligible 08/25/24 Private Coding Additional Codes PHQ-9 - 38690 - PHQ-9 Billing: Yes ([id number]) Assessment & Plan Assessment & Plan Orders: Orders Complete Blood Count Auto Diff Today E55.9 - Vitamin D deficiency, unspecified, E78.1 - Pure hyperglyceridemia, E78.2 - Mixed hyperlipidemia, I10 - Essential (primary) hypertension, K21.9 - Gastro-esophageal reflux disease without esophagitis, R20.2 - Paresthesia of skin Comprehensive [place]. Panel Fast Today E55.9 - Vitamin D deficiency, unspecified, E78.1 - Pure hyperglyceridemia, E78.2 - Mixed hyperlipidemia, I10 - Essential (primary) hypertension, K21.9 - Gastro-esophageal reflux disease without esophagitis, R20.2 - Paresthesia of skin Lipid Panel Today E55.9 - Vitamin D deficiency, unspecified, E78.1 - Pure hyperglyceridemia, E78.2 - Mixed hyperlipidemia, I10 - Essential (primary) hypertension, K21.9 - Gastro-esophageal reflux disease without esophagitis, R20.2 - Paresthesia of skin Vitamin D 25-OH Total Today E55.9 - Vitamin D deficiency, unspecified, E78.1 - Pure hyperglyceridemia, E78.2 - Mixed hyperlipidemia, I10 - Essential (primary) hypertension, K21.9 - Gastro-esophageal reflux disease without esophagitis, R20.2 - Paresthesia of skin UA CC w/rflx Micro + Cult Today E55.9 - Vitamin D deficiency, unspecified, E78.1 - Pure hyperglyceridemia, E78.2 - Mixed hyperlipidemia, I10 - Essential (primary) hypertension, K21.9 - Gastro-esophageal reflux disease without esophagitis, R20.2 - Paresthesia of skin TSH reflex Free T4 Today E55.9 - Vitamin D deficiency, unspecified, E78.1 - Pure hyperglyceridemia, E78.2 - Mixed hyperlipidemia, I10 - Essential (primary) hypertension, K21.9 - Gastro-esophageal reflux disease without esophagitis, R20.2 - Paresthesia of skin CA echo transthoracic complete Today E78.1 - Pure hyperglyceridemia, I10 - Essential (primary) hypertension Pneumococcal 20 Immunization Today Z23 - Encounter for immunization Glucose Fasting Today E55.9 - Vitamin D deficiency, unspecified, E78.1 - Pure hyperglyceridemia, E78.2 - Mixed hyperlipidemia, I10 - Essential (primary) hypertension, K21.9 - Gastro-esophageal reflux disease without esophagitis, R20.2 - Paresthesia of skin Medications: New pneumoc 20-juan conj-dip cr(PF) 0.5 mL IM ONCE 0.5 mL 0RF Z23 - Encounter for immunization
[2024-08-25 16:08] VITALS: BP 132/80; PULSE 65; O2SAT 96
--- OUTSIDE RECORDS SUMMARY | 2024-08-25 17:49 | XMS_ITS | Patient Health Record ---
Author Organization [facility] Address [address] [place] [address] Care Team Providers Care Machine Operator Cane Cutter Name Role Phone Lakeisha Hansen Unavailable [phone] Reason For Referral No Information Medications Medication SIG (Take, Route, Fr equency, Duration) Notes Start Date End Date Status Lisinopril 1 ORAL daily for -3 Bubba-MJ 02/26/2012 Active Metoprolol Tartrate 1 ORAL twice daily for -3 Bubba- 02/16 Active Problems Problem Type SNOMED Code ICD Code Onset Dates Problem Status W/U Status Risk Notes Problem Submucous leiomyoma of uterus (56500570) Submucous leiomyoma of uterus (218.0) Active confirmed Diag Problem Benign essential hypertension (6020840) Essential hypertension, benign (401.1) Active confirmed Major Problem Dysmenorrhea (914006138) Dysmenorrhea (625.3) Active confirmed Diag Problem Excessive and frequent menstruation (657542697) Excessive or frequent menstruation (626.2) Active confirmed Diag Problem Abnormal vaginal bleeding (579949868) Other disorder of menstruation and other abnormal bleeding from female genital tract (626.8) Active confirmed Major Problem Gynecological examination normal (480076099501755) Routine gynecological examination (V72.31) Active confirmed Major Plan Of Treatment No Information Insurance Providers Payer Name Payer Address Payer Phone Subscriber Number Group Number Insured Name Patient Relationship to Insured Coverage Start Date Coverage End Date [facility] [address] [place] [address] [phone] [id number] JOSE CARLOS MONTEMAYOR Self - patient is the insured
== END 2024-08-25 17:15 | disposition home or self-care (01) ==
PROVIDERS: PCP Internal Medicine
DX: Z23 Encounter for immunization (principal)

== ENCOUNTER → 2024-08-25 15:52 | Outpatient (BNVA) | payer OTHER, SELFPAY | PROVIDERS: PCP Internal Medicine | DX: E55.9 Vitamin D deficiency, unspecified (principal); E66.3 Overweight; K21.9 Gastro-esophageal reflux disease without esophagitis; E78.1 Pure hyperglyceridemia; I10 Essential (primary) hypertension; G47.00 Insomnia, unspecified; E78.2 Mixed hyperlipidemia; R20.2 Paresthesia of skin; Z23 Encounter for immunization | CPT/HCPCS: 90471; 90677; 96127 ==

== ENCOUNTER → 2024-08-29 13:15 | Outpatient (REF) | payer OTHER, SELFPAY ==
--- OUTSIDE RECORDS SUMMARY | 2024-08-29 14:48 | XMS_ITS | Patient Health Record ---
Author Organization [facility] Address [address] [place] [address] Care Team Providers Care Registration Clerk Name Role Phone Lakeisha Hansen Unavailable [phone] Reason For Referral No Information Medications Medication SIG (Take, Route, Fr equency, Duration) Notes Start Date End Date Status Lisinopril 1 ORAL daily for -3 Bubba-MJ 02/26/2012 Active Metoprolol Tartrate 1 ORAL twice daily for -3 [facility]- 02/16 Active Problems Problem Type SNOMED Code ICD Code Onset Dates Problem Status W/U Status Risk Notes Problem Submucous leiomyoma of uterus (74130046) Submucous leiomyoma of uterus (218.0) Active confirmed Diag Problem Benign essential hypertension (6815062) Essential hypertension, benign (401.1) Active confirmed Major Problem Dysmenorrhea (097433515) Dysmenorrhea (625.3) Active confirmed Diag Problem Excessive and frequent menstruation (853698775) Excessive or frequent menstruation (626.2) Active confirmed Diag Problem Abnormal vaginal bleeding (638320478) Other disorder of menstruation and other abnormal bleeding from female genital tract (626.8) Active confirmed Major Problem Gynecological examination normal (390671083069123) Routine gynecological examination (V72.31) Active confirmed Major Plan Of Treatment No Information Insurance Providers Payer Name Payer Address Payer Phone Subscriber Number Group Number Insured Name Patient Relationship to Insured Coverage Start Date Coverage End Date [facility] [address] [place] [address] [phone] [id number] JOSE CARLOS MONTEMAYOR Self - patient is the insured
--- NOTE | 2024-08-29 15:05 | CA_ITS ---
Transthoracic Echocardiogram Patient (Last, First, Middle): Leona Richard, Gender: Female Date of : 1965 Age: 59 Procedure Date: 08/29/2024 Procedure Type: Transthoracic Echocardiogram Location: OP Height: 157. cm Weight: 77.11 kg BSA: 1.78 m2 Heart Rate: 67 bpm BP: 126 / 80 mmHg [employer] Tuber Machine Operator: KARY Referring MD: David Melendrez POKER DEALER-C Symptoms: I10 - Essential (primary) hypertension Study Quality: Adequate ECG Rhythm: Sinus Conclusions: - The left ventricular systolic function is normal. The calculated ejection fraction is 66% by biplane method. - No obvious valvular pathology seen on this study. Findings Left Ventricle Normal left ventricular cavity size. There is mildly increased left ventricular wall thickness. The left ventricular systolic function is normal. The calculated ejection fraction is 66% by biplane method. There is no evidence of regional wall motion abnormalities. Diastolic function is normal for age. Right Ventricle Normal right ventricular cavity size and systolic function. Atria Both atria are normal in size. Aortic Valve There is a normal trileaflet aortic valve. There is no aortic valve stenosis. There is no aortic valve regurgitation. Mitral Valve The mitral valve appears normal. There is no mitral valve regurgitation. There is no mitral valve stenosis. Pulmonic Valve The pulmonic valve is likely normal. Tricuspid Valve There is trace tricuspid valve regurgitation. There is no evidence of pulmonary hypertension. Great Vessels The asc aorta is normal in size. Venous The inferior vena cava is normal in size and collapses greater than 50% with inspiration. Pericardium/Pleural There is no evidence of pericardial effusion. Prior Study Comparison No prior study available for comparison. Recommendations, Care & Conclusions No obvious valvular pathology seen on this study. Measurements 2D Linear Measurements IVSd: 1.04 0.6-0.9/0.6-1.0 cm LVIDd: 4.49 3.9-5.3/4.2-5.9 cm LVIDd Index: 2.52 2.4-3.2/2.2-3.1 cm/m2 LVIDs: 2.20 2.0-3.6 cm LVPWd: 1.23 0.7-1.1 cm LA Diam: 3.40 2.7-3.8/3.0-4.0 cm LAIDs Index: 1.91 1.5-2.3 cm/m2 LV Mass: 227.13 67-162/88-224 g LV Mass Index: 127.60 43-95/49-115 g/m2 LVOT Diam: 2.00 3.0+(-)1.3 cm 2D Systolic Function EF 4C: 65.30 >55% EF 2C: 66.70 >55% EF BiP: 65.90 >55% Mitral Valve MV Pk E: 0.60 MV PK A: 0.82 MV Decel Time: 298.00 E/A: 0.70 E'Lateral: 6.31 E'Medial: 5.33 E/E' Med: 11.30 E/E' Lat: 9.50 PHT: 87.00 MVA PHT: 2.53 Decel Keith: 2.01 Aortic Valve AoV Pk Jimy: 1.72 AoV Mn Jimy: 1.22 AoV VTI: 0.36 AoV Pk Grad: 12.00 Aov Mn Grad: 7.00 ABDULLAHI Cont.VTI: 2.05 LVOT LVOT Pk Jimy: 1.11 LVOT Mn Jimy: 0.80 LVOT VTI: 0.24 LVOT Pk Grad: 5.00 LVOT Mn Grad: 3.00 LVOT Diam: 2.00 LVOT Area: 3.14 Diastolic Function MV Pk E: 0.60 MV Pk A: 0.82 E/A: 0.70 E'Medial: 5.33 E/E' Med: 11.30 E' Laterial: 6.31 E/E' Lat: 9.50 Right Ventricle TAPSE (mm): 20.40 TVS' Jimy: 16.20 Tricuspid Valve TR Pk Jimy: 1.78 TR Pk Grad: 13.00 RA Press: 3.00 RVSP: 16.00 Great Vessels Aorta Sinus of Valsalva: 2.90 2.0-3.5 cm Ao Asc: 3.50 2.1-3.4 cm Ao Arch: 2.80 Pulmonary Valve PV Pk Jimy: 1.02 Peak PV Grad: 4.00 Updated in Other Vendor System with Status of Final Keny Cruz MD electronically signed on 08/30/2024 11:49:52 AM with status of Final
== END ==
LOC: HO.CARD 13:15
PROVIDERS: PCP Internal Medicine
DX: I10 Essential (primary) hypertension (principal); E78.1 Pure hyperglyceridemia
CPT/HCPCS: 93306

== ENCOUNTER → 2024-08-29 15:05 | Outpatient (BNV) | payer OTHER, SELFPAY | PROVIDERS: PCP Internal Medicine; Visit Provider Internal Medicine | DX: I10 Essential (primary) hypertension (principal); I36.1 Nonrheumatic tricuspid (valve) insufficiency | CPT/HCPCS: 93306 ==

== ENCOUNTER 2024-09-05 07:57 | Outpatient (REF) | payer OTHER, SELFPAY ==
[2024-09-05 10:18] LABS: MANUAL DIFF FLAG NO
[2024-09-05 10:23] LABS: Basophils Absolute Auto 0.1 X10*3/uL (0.0-0.2); Basophils Percent Auto 0.6 % (0-2); Eosinophils Absolute Auto 0.2 X10*3/uL (0.0-0.4); Eosinophils Percent Auto 2.6 % (0-4); Hematocrit 41.1 % (37.0-47.0); Hemoglobin 13.9 g/dl (12.0-16.0); Imm Gran Abs Auto 0.09 X10*3/uL (0.00-0.03); Imm Gran Pct Auto 1.1 % (0.0-0.4); Lymphocytes Percent Auto 36.9 % (20-40); Mean Corpuscular HGB Conc 33.8 g/dl (31.0-35.0); Mean Corpuscular Volume 94.5 fL (80.0-98.0); Mean Platelet Volume 8.8 fL (9.4-12.3); Monocytes Absolute Auto 0.7 X10*3/uL (0.1-1.2); Monocytes Percent Auto 8.6 % (2-11); Neutrophils Absolute Auto 4.1 x10*3/uL (2.0-8.3); Neutrophils Percent Auto 50.2 % (45-73); Platelet Count 265 X10*3/uL (160-400); Red Blood Count 4.35 X10*6/uL (4.20-5.50); White Blood Count 8.2 X10*3/uL (4.8-10.8)
[2024-09-05 10:54] LABS: Alanine Aminotransferase 39 U/L (0-31); Albumin Level 4.4 g/dL (3.5-5.0); Alkaline Phosphatase 67 U/L (39-117); Anion Gap 9 (12-20); Aspartate Amino Transferase 33 U/L (5-31); Bilirubin Total 0.8 mg/dL (0.0-1.0); Blood Urea Nitrogen 13 mg/dL (9-16); Carbon Dioxide 27 mmol/L (22-29); Chloride 110 mmol/L (96-108); Cholesterol 219 mg/dL (<200); Estimated Glomerular Filt Rate > 60; Glucose Fasting 98 mg/dL (60-99); HDL Cholesterol 42 mg/dL (>40); LDL Cholesterol Calculated 149 mg/dL (<100); Potassium 3.8 mmol/L (3.3-5.1); Sodium 142 mmol/L (135-145); TSH reflex Free T4 1.15 uIU/mL (0.32-4.0); Total Protein 8.1 g/dL (6.5-8.0); Triglycerides 142 mg/dL (<150); Vitamin D 25-OH Total 25.9 ng/mL (>30)
[2024-09-05 11:03] LABS: Appearance Urine Turbid; Color Urine Yellow; Glucose Urine UA Negative (Negative); Leukocyte Esterase Urine Negative (Negative); Nitrite Urine Negative (Negative); PH 5.5 (5.0-9.0); Specific Gravity - Urine 1.025 (1.005-1.025); Urine Blood Negative (Negative); Urine Ketones Negative (Negative); Urine Protein Negative (Neg-Trace)
[2024-09-08 11:44] LABS: CRP High Sensitivity 0.8 mg/L
== END 2024-09-05 07:58 | disposition home or self-care (01) ==
LOC: HO.10HDL 07:57
DX: Z00.00 Encounter for general adult medical examination without abnormal findings (principal); E55.9 Vitamin D deficiency, unspecified; E78.2 Mixed hyperlipidemia; R20.2 Paresthesia of skin; K21.9 Gastro-esophageal reflux disease without esophagitis; E78.1 Pure hyperglyceridemia; I10 Essential (primary) hypertension; M25.50 Pain in unspecified joint
CPT/HCPCS: 36415; 80053; 80061; 81003; 82306; 84443; 85025; 86141

== ENCOUNTER 2025-02-23 15:53 | Outpatient (AMB) | payer OTHER, SELFPAY ==
[2025-02-23 15:56] VITALS: BP 128/84; PULSE 77; O2SAT 97
--- NOTE | 2025-02-23 15:56 | A.OFFPC_ITS ---
Vital Signs 02/23/25 15:56 Height 5 ft 2 in BMI Reason not done Patient refused/unable BP 128/84 Blood Pressure Location Lt brachial Position Sitting Pulse 77 Pulse Source Pulse Oximeter Pulse Oximetry (%) 97 Oxygen Delivery Method Room Air Intake Visit Reasons: annual exam Cancellation Clerk Required: No Accompanied by: Self / Same As Patient Allergies acetaminophen (From Percocet) Allergy (Intermediate, Verified 02/23/25 17:06) Vomiting oxycodone (From Percocet) Allergy (Intermediate, Verified 02/23/25 17:06) Vomiting penicillin V Allergy (Mild, Verified 02/23/25 17:06) Rash Penicillins Allergy (Mild, Verified 02/23/25 17:06) Rash Medication List - Last Reconciled 02/23/25 by Grayson Lundberg MD albuterol sulfate 90 mcg/actuation 1 inh inhalation QID PRN amlodipine 5 mg PO DAILY 90 days atorvastatin 10 mg PO BEDTIME 90 days guaifenesin ER (Mucinex) 600 mg PO BID lisinopril 20 mg PO BEDTIME metoprolol tartrate 50 mg PO BID 90 days prednisone 10 mg PO DIRECTED trazodone 50 mg PO BEDTIME PRN 30 days triazolam 0.25 mg PO BEDTIME PRN 90 days Tobacco use date assessed: 02/23/25 Dental Screening Dental Screen Date: 02/23/25 Did you have a dental visit in the last 12 months?: Yes Did you have a dental problem in the last 6 months where you did not have access to dental care?: No Was dental information given to patient?: Patient has dentist HPI annual exam HPI Details Patient comes in today for annual physical examination States that she feels okay She denies any headaches or dizziness Denies any chest pains, no shortness of breath No nausea/vomiting, no abdominal pain No change in bowel habits noted She denies any acute urinary symptoms She is up-to-date with screening colonoscopy - had her colonoscopy done with Dr. Singh last year (2023), which came out normal and she was advised to undergo a repeat colonoscopy in 10 years (2033) She is up-to-date with her annual mammogram She had a complete hysterectomy done years ago and no longer has to keep up with yearly Pap smear gynecology exam She has never had a bone density screening done in the past [facility] Medical History (Updated 02/24/25 @ 06:03 by Grayson Lundberg MD) Essential hypertension Insomnia Thrombosed external hemorrhoid Neuropathy Habitual snoring Arthritis Asthma Overweight (BMI 25.0-29.9) GERD without esophagitis Hypertriglyceridemia Arthralgia Benign essential hypertension Surgical History History of medial meniscus repair of right knee Hx of breast biopsy Status post total abdominal hysterectomy and bilateral salpingo-oophorectomy (SONJA-BSO) (~2012) Family History Father No problems noted. Mother No problems noted. 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 1. Little interest or pleasure in doing things: not at all 2. Feeling down, depressed, or hopeless: not at all 3. Trouble falling or staying asleep, or sleeping too much: several days 4. Feeling tired or having little energy: several days 5. Poor appetite or overeating: not at all 6. Feeling bad about yourself - or that you are a failure or have let yourself or your family down: not at all 7. Trouble concentrating on things, such as reading the newspaper or watching television: not at all 8. Moving or speaking so slowly that other people could have noticed. Or the opposite - being so fidgety or restless that you have been moving around a lot more than usual: not at all 9. Thoughts that you would be better off or of hurting yourself in some way: not at all Total score: 2 Depression Screening Interpretation: Negative Depression Screening Done: Yes 90177 - PHQ-9 Billing: Yes Source: Developed by Drs. Segundo Blackmon, Isidoro Ornelas and colleagues, with an educational sharron from [employer]. Thrive Questionnaire Date Thrive assessed: 02/23/25 I am a: Patient What is your living situation today?: I have a steady place to live Within the past 12 months, did the food you bought not last and you didn't have the money to get more?: I choose not to answer this question Within the past 12 months, did you worry whether your food would run out before you got money to buy more?: I choose not to answer this question Do you have trouble paying for medicines?: No Do you have trouble getting transportation to medical appointments?: No Do you have trouble paying your heating and electricity bill?: I choose not to answer this question Do you have trouble taking care of your child, family member or friend?: No Do you have trouble with day-to-day activities such as bathing, preparing meals, shopping, managing finances, etc.?: No Are you currently unemployed and looking for a job?: No Are you interested in more education?: No Please select the resources that you would like help with: None Currently or been in a relationship where the following occur: I choose not to answer THRIVE Score: 0 AUDIT C Alcohol Use Questionnaire (AUDIT-C) 1. How often do you have a drink containing alcohol?: Never 3. How often do you have six or more drinks on one occasion?: Never Total Score: 0 Score Reviewed/Action Taken: Yes ARMIN-7 AMB Questionnaire ARMIN-7 Date ARMIN - 7 assessed: 02/23/25 Feeling nervous, anxious, or on edge: 0 = Not at all Not being able to stop or control worryin = Not at all Worrying too much about different things: 1 = Several days Trouble relaxin = Several days Being so restless that it is hard to sit still: 1 = Several days Becoming easily annoyed or irritable: 0 = Not at all Feeling afraid as if something awful might happen: 0 = Not at all Total ARMIN-7 score (0-4 normal; 5-9 mild; 10-14 moderate; 15-21 severe): 3 Source: Developed by Tati Alonzo Kurt Kroenke and colleagues, with an educational sharron from [employer]. Review of Systems Const Denies chills, Denies fatigue, Denies fever(s), Denies headache(s) and Denies malaise Eyes Denies blurry vision, Denies change in vision, Denies irritation and Denies itchy eyes ENT Denies dysphagia, Denies dizziness, Denies otalgia, Denies headache(s), Denies nasal congestion, Denies neck pain, Denies odynophagia, Denies sinus pain and Denies sore throat Card Denies chest pain, Denies rapid heart rate, Denies irregular heart rhythm, Denies palpitations and Denies dyspnea Resp Denies chest congestion, Denies cough, Denies dyspnea and Denies wheezing GI Denies abdominal pain, Denies bloating, Denies constipation, Denies dysphagia, Denies heartburn, Denies diarrhea, Denies nausea, Denies odynophagia and Denies vomiting Denies hematuria, Denies urinary frequency, Denies dysuria, Denies urinary incontinence and Denies urinary urgency Musc Denies back pain, Denies arthralgias, Denies joint swelling, Denies muscle weakness and Denies neck pain Skin/Breast Denies breast pain, Denies breast mass, Denies change in pigmentation, Denies lesions, Denies rash and Denies unusual bruising Neuro Denies dizziness, Denies headache(s) and Denies paresthesias Psych Denies anxiety and Denies depression Endo Denies fatigue and Denies palpitations Myke/Lymph Denies easy bruising Aller/Immun Denies itchy eyes and Denies wheezing Physical exam (Primary Care) Vital Signs: Last Vital Signs Pulse 77 02/23/25 15:56 BP 128/84 02/23/25 15:56 Pulse Ox 97 02/23/25 15:56 Oxygen Delivery Method Room Air 02/23/25 15:56 Tobacco/Smoking Status: Tobacco use Status Tobacco use date assessed 02/23/25 02/23/25 15:58 Patient Tobacco Use Status Never used Tobacco 02/23/25 15:58 e-Cigarette/Vaping Use Never Used 02/23/25 15:58 PHQ-9: PHQ-9 Score PHQ-9: Total score 2 02/23/25 17:16 Depression Screening Interpretation: Negative Thrive Assessment: Date of Thrive Assessment Date Thrive assessed 02/23/25 02/23/25 15:58 Currently or been in a relationship where the following occur: I choose not to answer Const General: no acute distress, alert and awake Orientation/consciousness: patient oriented x3 HENMT Head: Yes normocephalic and Yes atraumatic Ears: external ears normal, TM's normal bilaterally and EAC's normal General nose exam: No nasal discharge present Face and sinus: Yes normal facial exam and Yes sinuses nontender Teeth and gingiva: dentition normal Throat: Yes posterior oropharynx normal and Yes tonsils normal (no TP congestion) Eyes Eyelids: Yes eyelids normal Conjunctivae: conjunctivae normal Pupils: Equal, round and reactive pupils present EOM: EOMs intact bilaterally Neck Neck: Yes no lymphadenopathy and Yes supple Thyroid: Thyroid normal Resp Auscultation: clear to auscultation bilaterally, no rales and no wheezes Cardio Rate: regular rate Rhythm: regular rhythm Heart sounds: no murmurs GI Palpation (GI): Soft to palpation, nontender and No hepatosplenomegaly present Auscultation: normal bowel sounds General: Yes no CVA tenderness Back/Spine/Pelvis Back: no CVA tenderness Thoracic/Lumbar Spine: thoracic and lumbar spine normal to inspection Skin Lesions: no lesions Rashes: no rashes Neuro General: patient oriented x3, moves all extremities, no focal motor deficits and CN's II-XI intact bilaterally Cranial nerves: Yes Equal, round and reactive pupils present Cognition (Neuro): normal cognition Gait exam (Neuro): Normal gait present Extrem General: Yes no clubbing, cyanosis or edema Coding Level of Care Code Est Pt Prev Care 40-64y(09113) Diagnoses Annual physical exam Z00.00 Essential hypertension I10 Mixed hyperlipidemia E78.2 Paresthesia of both lower extremities R20.2 Vitamin D deficiency E55.9 Insomnia, unspecified type G47.00 Insomnia type: unspecified Overweight (BMI 25.0-29.9) E66.3 Osteoporosis screening Z13.820 Additional Codes PHQ-9 - 23198 - PHQ-9 Billing: Yes ([id number]) Assessment & Plan Assessment & Plan (1) Annual physical exam: Code(s): Z00.00 - Encounter for general adult medical examination without abnormal findings Category: Medical Plan: Will send patient for her routine labs to complete her annual exam today She had her screening colonoscopy done with Dr. Singh last year (2023), which came out normal and she was advised to undergo a repeat colonoscopy in 10 years (2033) She is up-to-date with her annual mammogram She had a complete hysterectomy done years ago and no longer has to keep up with yearly Pap smear gynecology exam She has never had a bone density screening done in the past (2) Essential hypertension: Code(s): I10 - Essential (primary) hypertension Category: Medical Plan: Reinforced low sodium diet - goal is systolic BP of at least 120 to 130 mm or less Continue Lisinopril 20 mg QD, Metoprolol 50 mg BID and Amlodipine 5 mg QD She is reminded to continue monitoring her blood pressure regularly (3) Mixed hyperlipidemia: Code(s): E78.2 - Mixed hyperlipidemia Category: Medical Plan: Her LDL cholesterol level was at 149 mg/dl and total cholesterolat 219 mg/dl when last checked 6 months ago in August 2024 and she has since been started on Atorvastatin 10 mg QD Reinforced low cholesterol diet Will recheck her fasting lipids and labs SHAKIRA for follow up (4) Paresthesia of both lower extremities: Code(s): R20.2 - Paresthesia of skin Category: Medical Plan: EMG and NCV done back on 02/09/2011 revealed findings of right lateral femoral cutaneous neuropathy/meralgia paresthetica X-rays of the lumbar spine and both hips done last year came out normal Repeat EMG and NCV done in December 2021 revealed the same - (+) bilateral, right more than left, lateral femoral cutaneous neuropathy EMG was suggestive of a right upper lumbar radiculopathy (5) Vitamin D deficiency: Code(s): E55.9 - Vitamin D deficiency, unspecified Category: Medical Plan: Continue OTC Vitamin D3 2000 units QD Will recheck her Vitamin D level for follow up (6) Insomnia: Code(s): G47.00 - Insomnia, unspecified Category: Medical Qualifiers: Insomnia type: unspecified Qualified Code(s): G47.00 - Insomnia, unspecified Plan: Sleep hygiene reinforced Continue Trazodone 50 mg Q HS PRN (7) Overweight (BMI 25.0-29.9): Code(s): E66.3 - Overweight Category: Medical Plan: Reinforced diet/exercise as tolerated/lose weight (8) Osteoporosis screening: Code(s): Z13.820 - Encounter for screening for osteoporosis Category: Medical Plan: Will send patient for BMD for osteoporosis screening - this will be ner index screen Plan To return in 1 year for her next annual physical examination Orders: Orders Hemoglobin A1c 02/23/25 R73.9 - Hyperglycemia, unspecified Comprehensive [place]. Panel Fast 02/23/25 E78.00 - Pure hypercholesterolemia, un specified Lipid Panel 02/23/25 E78.00 - Pure hypercholesterolemia, unspecified UA CC w/rflx Micro + Cult 02/23/25 R30.0 - Dysuria Vitamin B12 and Folate 02/23/25 E53.8 - Deficiency of other specified B group vitamins Vitamin D 25-OH Total 02/23/25 E55.9 - Vitamin D deficiency, unspecified XR DEXA axial skeleton 02/23/25 Z78.0 - Asymptomatic menopausal state Complete Blood Count Auto Diff 02/23/25 D64.9 - Anemia, unspecified TSH reflex Free T4 02/23/25 E78.00 - Pure hypercholesterolemia, unspecified
--- OUTSIDE RECORDS SUMMARY | 2025-02-23 18:38 | XMS_ITS | Patient Health Record ---
Author Organization [facility] Address [address] [place] [address] Care Team Providers Care Edger Liner Name Role Phone Lakeisha Hansen Unavailable [phone] Reason For Referral No Information Medications Medication SIG (Take, Route, Fr equency, Duration) Notes Start Date End Date Status Lisinopril 1 ORAL daily; Duration: -3 Bubba-MJ 02/26/2012 Active Metoprolol Tartrate 1 ORAL twice daily; Duration: -3 Bubba-MJ 02/26/2012 Active Problems Problem Type SNOMED Code ICD Code Onset Dates Problem Status W/U Status Risk Notes Problem Submucous leiomyoma of uterus (79285838) Submucous leiomyoma of uterus (218.0) Active confirmed Diag Problem Benign essential hypertension (7830633) Essential hypertension, benign (401.1) Active confirmed Major Problem Dysmenorrhea (935392158) Dysmenorrhea (625.3) Active confirmed Diag Problem Excessive and frequent menstruation (657435994) Excessive or frequent menstruation (626.2) Active confirmed Diag Problem Abnormal vaginal bleeding (059184288) Other disorder of menstruation and other abnormal bleeding from female genital tract (626.8) Active confirmed Major Problem Gynecological examination normal (181894400958362) Routine gynecological examination (V72.31) Active confirmed Major Plan Of Treatment No Information Insurance Providers Payer Name Payer Address Payer Phone Subscriber Number Group Number Insured Name Patient Relationship to Insured Coverage Start Date Coverage End Date [facility] [address] [place] [address] [phone] [id number] JOSE CARLOS MONTEMAYOR Self - patient is the insured
== END 2025-02-23 17:34 | disposition home or self-care (01) ==
LOC: HO.HMCH 15:54
PROVIDERS: PCP Internal Medicine; Visit Provider Internal Medicine
DX: Z00.00 Encounter for general adult medical examination without abnormal findings (principal); I10 Essential (primary) hypertension; E78.2 Mixed hyperlipidemia; R20.2 Paresthesia of skin; E55.9 Vitamin D deficiency, unspecified; G47.00 Insomnia, unspecified; E66.3 Overweight; Z13.820 Encounter for screening for osteoporosis

== ENCOUNTER → 2025-02-23 15:53 | Outpatient (BNVA) | payer OTHER, SELFPAY | PROVIDERS: PCP Internal Medicine; Visit Provider Internal Medicine | DX: Z00.00 Encounter for general adult medical examination without abnormal findings (principal); I10 Essential (primary) hypertension; E78.2 Mixed hyperlipidemia; R20.2 Paresthesia of skin; E55.9 Vitamin D deficiency, unspecified; G47.00 Insomnia, unspecified; E66.3 Overweight; R73.9 Hyperglycemia, unspecified; E78.00 Pure hypercholesterolemia, unspecified; R30.0 Dysuria; E53.8 Deficiency of other specified B group vitamins | CPT/HCPCS: 96127 ==

== ENCOUNTER 2025-03-16 08:17 | Outpatient (REF) | payer OTHER, SELFPAY ==
--- OUTSIDE RECORDS SUMMARY | 2025-03-16 08:29 | XMS_ITS | Patient Health Record ---
Author Organization [facility] Address [address] [place] [address] Care Team Providers Care Sprinkler Irrigation Equipment Mechanic Name Role Phone Lakeisah Hansen Unavailable [phone] Reason For Referral No Information Medications Medication SIG (Take, Route, Fr equency, Duration) Notes Start Date End Date Status Lisinopril 1 ORAL daily; Duration: -3 Bubba-MJ 02/26/2012 Active Metoprolol Tartrate 1 ORAL twice daily; Duration: -3 Bubba-MJ 02/26/2012 Active Problems Problem Type SNOMED Code ICD Code Onset Dates Problem Status W/U Status Risk Notes Problem Submucous leiomyoma of uterus (82262997) Submucous leiomyoma of uterus (218.0) Active confirmed Diag Problem Benign essential hypertension (9240856) Essential hypertension, benign (401.1) Active confirmed Major Problem Dysmenorrhea (426892337) Dysmenorrhea (625.3) Active confirmed Diag Problem Excessive and frequent menstruation (953001770) Excessive or frequent menstruation (626.2) Active confirmed Diag Problem Abnormal vaginal bleeding (336353334) Other disorder of menstruation and other abnormal bleeding from female genital tract (626.8) Active confirmed Major Problem Gynecological examination normal (129406683963378) Routine gynecological examination (V72.31) Active confirmed Major Plan Of Treatment No Information Insurance Providers Payer Name Payer Address Payer Phone Subscriber Number Group Number Insured Name Patient Relationship to Insured Coverage Start Date Coverage End Date [facility] [address] [place] [address] [phone] [id number] JOSE CARLOS MONTEMAYOR Self - patient is the insured
[2025-03-16 13:30] LABS: MANUAL DIFF FLAG NO
[2025-03-16 13:45] LABS: Hematocrit 41.8 % (37.0-47.0); Hemoglobin 13.8 g/dl (12.0-16.0); Imm Gran Abs Auto 0.05 X10*3/uL (0.00-0.03); Imm Gran Pct Auto 0.7 % (0.0-0.4); Lymphocytes Absolute Auto 2.4 X10*3/uL (1.2-4.9); Mean Corpuscular HGB Conc 33.0 g/dl (31.0-35.0); Mean Corpuscular Hemoglobin 32.1 pg (27.0-33.0); Mean Corpuscular Volume 97.2 fL (80.0-98.0); NRBC Abs Auto 0.000 X10*3/uL (0.0-0.012); NRBC Pct Auto 0.0 /100WBC (0.0-0.2); Platelet Count 249 X10*3/uL (160-400); Red Blood Count 4.30 X10*6/uL (4.20-5.50); White Blood Count 6.9 X10*3/uL (4.8-10.8)
[2025-03-16 13:58] LABS: Appearance Urine Turbid; Glucose Urine UA Negative (Negative); PH 6.0 (5.0-9.0); Specific Gravity - Urine 1.025 (1.005-1.025)
[2025-03-16 14:07] LABS: Alanine Aminotransferase 42 U/L (0-31); Albumin Level 4.7 g/dL (3.5-5.0); Alkaline Phosphatase 75 U/L (39-117); Anion Gap 12 (12-20); Aspartate Amino Transferase 38 U/L (5-31); Blood Urea Nitrogen 11 mg/dL (9-16); Calcium 9.0 mg/dL (8.4-10.2); Carbon Dioxide 25 mmol/L (22-29); Chloride 109 mmol/L (96-108); Cholesterol 162 mg/dL (<200); Estimated Glomerular Filt Rate > 60; HDL Cholesterol 37 mg/dL (>40); Potassium 4.0 mmol/L (3.3-5.1); Sodium 142 mmol/L (135-145); Total Protein 7.7 g/dL (6.5-8.0); Triglycerides 146 mg/dL (<150)
[2025-03-16 14:30] LABS: Folate 12.9 ng/mL (> or = 4.0); Vitamin B12 329 pg/mL (200-900)
== END 2025-03-16 08:18 | disposition home or self-care (01) ==
LOC: HO.HKASLDS 08:17
PROVIDERS: Visit Provider Internal Medicine
DX: E53.8 Deficiency of other specified B group vitamins (principal); D64.9 Anemia, unspecified; R73.9 Hyperglycemia, unspecified; E78.00 Pure hypercholesterolemia, unspecified; E55.9 Vitamin D deficiency, unspecified; R30.0 Dysuria
CPT/HCPCS: 36415; 80053; 80061; 81003; 82306; 82607; 82746; 83036; 84443; 85025

== ENCOUNTER 2025-03-16 14:20 | Outpatient (REF) | payer OTHER, SELFPAY ==
--- NOTE | ~2025-03-16 | MM_ITS ---
EXAMINATION: DXA BONE DENSITY AXIAL HISTORY: Z78.0 - Asymptomatic menopausal state TECHNIQUE: [employer] Dual energy absorptiometry (DEXA) of the lumbar spine, total left hip, and femoral neck was performed. COMPARISON: There are no prior studies for comparison. FINDINGS: The bone mineral density of the lumbar spine is 1.031 g/cm2, corresponding to a T-score of -1.2, and a Z-score of -0.3. This is indicative of osteopenia. The bone mineral density of the left total hip is 1.119 g/cm2, corresponding to a T-score of 0.9, and a Z-score of 1.6. This is indicative of normal bone mineral density. The bone mineral density of the left femoral neck is 1.141 g/cm2, corresponding to a T-score of 0.7, and a Z-score of 1.8. This is indicative of normal bone mineral density. FRACTURE RISK: The FRAX index suggests a risk of major osteoporotic fracture of 2.9%, and of hip fracture 0.0%. MM/XR DEXA axial skeleton IMPRESSION: Based on bone mineral density, and according to World Health Organization (WHO) criteria, the diagnosis is consistent with osteopenia. Statistically, 68% of repeat scans fall within 1 SD (+/- 0.010 g/cm2 for AP spine L1-L4) and 1 SD (+/- 0.012 g/cm2 for femur total) FRAX is a trademark of the [employer]'s [place] [facility] Met[employer] Disease, a World Health Organization (WHO) Collaborating Center. Electronically signed by: Segundo Cheatham MD 03/16/2025 02:58 PM EDT
== END 2025-03-16 14:21 | disposition home or self-care (01) ==
LOC: HO.MAMMO 14:20
PROVIDERS: PCP Internal Medicine; Visit Provider Internal Medicine
DX: Z13.820 Encounter for screening for osteoporosis (principal); Z78.0 Asymptomatic menopausal state
CPT/HCPCS: 77080

== ENCOUNTER → 2025-03-16 14:30 | Outpatient (BNV) | payer OTHER, SELFPAY | PROVIDERS: PCP Internal Medicine; Visit Provider Radiology Diagnostic Radiology | DX: E28.39 Other primary ovarian failure (principal) | CPT/HCPCS: 77080 ==

== ENCOUNTER 2025-04-01 15:23 | Outpatient (REF) | payer OTHER, SELFPAY ==
--- OUTSIDE RECORDS SUMMARY | 2025-04-01 18:58 | XMS_ITS | Patient Health Record ---
Author Organization [facility] Address [address] [place] [address] Care Team Providers Care Marble Machine Operator Name Role Phone Lakeisha Hansen Unavailable [phone] Reason For Referral No Information Medications Medication SIG (Take, Route, Fr equency, Duration) Notes Start Date End Date Status Lisinopril 1 ORAL daily; Duration: -3 Bubba-MJ 02/26/2012 Active Metoprolol Tartrate 1 ORAL twice daily; Duration: -3 Bubba-MJ 02/26/2012 Active Problems Problem Type SNOMED Code ICD Code Onset Dates Problem Status W/U Status Risk Notes Problem Submucous leiomyoma of uterus (44353080) Submucous leiomyoma of uterus (218.0) Active confirmed Diag Problem Benign essential hypertension (0356489) Essential hypertension, benign (401.1) Active confirmed Major Problem Dysmenorrhea (844150484) Dysmenorrhea (625.3) Active confirmed Diag Problem Excessive and frequent menstruation (665959355) Excessive or frequent menstruation (626.2) Active confirmed Diag Problem Abnormal vaginal bleeding (692145062) Other disorder of menstruation and other abnormal bleeding from female genital tract (626.8) Active confirmed Major Problem Gynecological examination normal (861738167922288) Routine gynecological examination (V72.31) Active confirmed Major Plan Of Treatment No Information Insurance Providers Payer Name Payer Address Payer Phone Subscriber Number Group Number Insured Name Patient Relationship to Insured Coverage Start Date Coverage End Date [facility] [address] [place] [address] [id number] JOSE CARLOS MONTEMYAOR Self - patient is the insured
== END 2025-04-01 15:24 | disposition home or self-care (01) ==
LOC: HO.MAMMO 15:23
PROVIDERS: PCP Internal Medicine; Visit Provider Internal Medicine
DX: Z12.31 Encounter for screening mammogram for malignant neoplasm of breast (principal)
CPT/HCPCS: 77063; 77067

== ENCOUNTER → 2025-04-01 15:45 | Outpatient (BNV) | payer OTHER, SELFPAY | PROVIDERS: PCP Internal Medicine; Visit Provider Internal Medicine | DX: Z12.31 Encounter for screening mammogram for malignant neoplasm of breast (principal) | CPT/HCPCS: 77063; 77067 ==

== ENCOUNTER 2025-05-26 14:51 | Outpatient (REF) | payer OTHER, SELFPAY ==
--- NOTE | ~2025-05-26 | XR_ITS ---
EXAMINATION: XR ANKLE, RIGHT CLINICAL INFORMATION: M25.571 - Pain in right ankle and joints of right foot COMPARISON: Previous x-ray February 2016 TECHNIQUE: AP, lateral, and mortise views of the right ankle. FINDINGS: Bone alignment is normal. No fracture or dislocation. Normal ankle mortise. Small calcaneal spur at the Achilles tendon insertion. Soft tissues otherwise normal. XR/XR ankle RT min 3V IMPRESSION: Small calcaneal spur otherwise normal right ankle. Electronically signed by: Yaquelin Merchant MD 05/26/2025 04:08 PM KIM
== END 2025-05-26 14:52 | disposition home or self-care (01) ==
LOC: HO.XRAY 14:51
PROVIDERS: PCP Internal Medicine; Visit Provider Internal Medicine
DX: M25.571 Pain in right ankle and joints of right foot (principal)
CPT/HCPCS: 73610

== ENCOUNTER 2025-05-26 14:51 | Outpatient (AMB) | payer OTHER, SELFPAY ==
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
[2025-05-26 15:04] VITALS: BP 130/72; PULSE 76; TEMP 36.2; O2SAT 97; BMI 32.6
--- OUTSIDE RECORDS SUMMARY | 2025-05-26 21:00 | XMS_ITS | Patient Health Record ---
Author Organization [facility] Address [address] [place] [address] Care Team Providers Care Financial Institution Branch Manager Name Role Phone Lakeisha Hansen Unavailable [phone] Reason For Referral No Information Medications Medication SIG (Take, Route, Fr equency, Duration) Notes Start Date End Date Status Lisinopril 1 ORAL daily; Duration: -3 Bubba-MJ 02/26/2012 Active Metoprolol Tartrate 1 ORAL twice daily; Duration: -3 Bubba-MJ 02/26/2012 Active Problems Problem Type SNOMED Code ICD Code Onset Dates Problem Status W/U Status Risk Notes Problem Submucous leiomyoma of uterus (25698005) Submucous leiomyoma of uterus (218.0) Active confirmed Diag Problem Benign essential hypertension (0784735) Essential hypertension, benign (401.1) Active confirmed Major Problem Dysmenorrhea (471038987) Dysmenorrhea (625.3) Active confirmed Diag Problem Excessive and frequent menstruation (896658215) Excessive or frequent menstruation (626.2) Active confirmed Diag Problem Abnormal vaginal bleeding (600326352) Other disorder of menstruation and other abnormal bleeding from female genital tract (626.8) Active confirmed Major Problem Gynecological examination normal (060068095162205) Routine gynecological examination (V72.31) Active confirmed Major Plan Of Treatment No Information Insurance Providers Payer Name Payer Address Payer Phone Subscriber Number Group Number Insured Name Patient Relationship to Insured Coverage Start Date Coverage End Date [facility] [address] [place] [address] [id number] JOSE CARLOS MONTEMAYOR Self - patient is the insured
== END 2025-05-26 15:31 | disposition home or self-care (01) ==
LOC: HO.HMCH 14:52
PROVIDERS: PCP Internal Medicine; Visit Provider Internal Medicine
DX: R42 Dizziness and giddiness (principal); H92.01 Otalgia, right ear; G89.29 Other chronic pain; M25.571 Pain in right ankle and joints of right foot; I10 Essential (primary) hypertension; E78.2 Mixed hyperlipidemia; R20.2 Paresthesia of skin; E55.9 Vitamin D deficiency, unspecified; G47.00 Insomnia, unspecified; E66.3 Overweight

== ENCOUNTER → 2025-05-26 15:47 | Outpatient (BNV) | payer OTHER, SELFPAY | PROVIDERS: PCP Internal Medicine; Visit Provider Radiology Diagnostic Radiology | DX: M77.31 Calcaneal spur, right foot (principal) | CPT/HCPCS: 73610 ==